=== PATIENT | male | born 1975 | race Caucasian/White ===

== ENCOUNTER 2018-07-12 00:35 | Outpatient (CLI) | payer MEDICARE, MEDICAID, SELFPAY ==
--- NOTE | 2018-07-12 10:35 | DI.US_ITS ---
SYMPTOMS/DIAGNOSIS: CONFUSION AND DISORIENTATION CAROTID ULTRASOUND: There is a minimal amount of plaque, which is calcified, seen in the common carotid bulbs and proximal internal carotid arteries. There is no significant visible stenosis. The velocity measurements are within the normal range. The vertebral arteries show antegrade flow. The internal carotid arteries are noted to be tortuous bilaterally. IMPRESSION: Minimal calcific plaque. No significant internal carotid artery stenosis.
== END 2018-07-12 00:55 ==
PROVIDERS: PCP Family Medicine; Visit Provider Family Medicine
DX: G45.9 Transient cerebral ischemic attack, unspecified (principal); R41.0 Disorientation, unspecified; I77.89 Other specified disorders of arteries and arterioles
CPT/HCPCS: 93880

== ENCOUNTER 2018-08-27 01:06 | Outpatient (CLI) | payer MEDICARE, MEDICAID, SELFPAY ==
--- NOTE | 2018-08-27 14:57 | DI.MRI_ITS ---
SYMPTOMS/DIAGNOSIS: RADICULOPATHY, M54.10 LUMBOSACRAL SPINE MRI: MRI examination of the lumbosacral spine was performed according to the usual protocol. No significant bony signal abnormality is seen. The conus medullaris appears intact. No bony central canal spinal stenosis or neural foraminal stenosis seen. Minimal hypertrophic changes noted involving the facet joints. At L 4 - 5 there is a mild central disc herniation, no definite impingement on the neural structures. No other disc herniation identified in the lumbar region. CONCLUSION: Mild central disc herniation at L 4 - 5 without evidence of neural impingement. No other significant findings.
== END 2018-08-27 01:26 ==
PROVIDERS: PCP Family Medicine; Visit Provider Family Medicine
DX: M54.16 Radiculopathy, lumbar region (principal); M51.16 Intervertebral disc disorders with radiculopathy, lumbar region
CPT/HCPCS: 72148

== ENCOUNTER 2018-10-05 00:37 | Outpatient (CLI) | payer MEDICARE, MEDICAID, SELFPAY ==
--- NOTE | 2018-10-05 08:59 | DI.RAD_ITS ---
SYMPTOM/DIAGNOSIS: RIGHT HIP PAIN, M25.551 RIGHT HIP AND AP PELVIS: No priors. There is mild acetabular spurring of the right hip. The joint space is otherwise well maintained. The bones are intact and normally mineralized. The sacroiliac joint, symphysis pubis and left hip are all well maintained. The soft tissues are unremarkable. IMPRESSION: Minimal degenerative changes of the right hip.
== END 2018-10-05 00:57 ==
PROVIDERS: PCP Family Medicine; Visit Provider Family Medicine
DX: M25.551 Pain in right hip (principal); M16.11 Unilateral primary osteoarthritis, right hip
CPT/HCPCS: 73502

== ENCOUNTER 2018-10-27 12:45 | Outpatient (CLI) | payer MEDICARE, MEDICAID, SELFPAY ==
--- NOTE | 2018-10-27 06:00 | DI.RAD_ITS ---
SYMPTOMS/DIAGNOSIS: GREATER TROCHANTERIC BURSITIS OF RIGHT HIP C-ARM FLUOROSCOPY, RIGHT HIP: Fluoroscopy Time: 7.7 seconds/1.09 mGy C-arm fluoroscopy was utilized by Dr. Solano during reported trochanteric injection. Hard copies show injection in the region of the trochanteric bursa.
[2018-10-27 12:53] VITALS: BP 108/72; PULSE 59; RESP 20; TEMP 37; O2SAT 97
[2018-10-27 13:21] VITALS: BP 113/64; PULSE 56; RESP 14; O2SAT 100
[2018-10-27 13:27] VITALS: BP 132/81; PULSE 58; RESP 16; O2SAT 99
[2018-10-27 13:34] VITALS: BP 120/86; PULSE 58; RESP 16; O2SAT 99
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
[2018-10-27] MEDS: Bupivacaine 0.5% Pres-Free 30 ML VIAL IJ (14:02)
[2018-10-27] MEDS: methylPREDNISolone ACETATE 40 MG/ML VIAL IJ (14:02)
[2018-10-27] MEDS: Omnipaque 240 MG/ML 50 ML BTL IJ (14:04)
== END 2018-10-27 13:05 ==
PROVIDERS: PCP Family Medicine; Visit Provider Anesthesiology Pain Medicine
DX: M70.61 Trochanteric bursitis, right hip (principal); G89.29 Other chronic pain
CPT/HCPCS: 20610; 77002; J1030; Q9967

== ENCOUNTER 2019-02-02 03:43 | Outpatient (CLI) | payer MEDICARE, MEDICAID, SELFPAY ==
[2019-02-02 11:51] VITALS: BP 113/74; PULSE 62; RESP 16; TEMP 36.7; O2SAT 97
[2019-02-02 12:44] VITALS: BP 105/61; PULSE 56; RESP 11; O2SAT 100
--- NOTE | 2019-02-02 12:54 | DI.US_ITS ---
SYMPTOMS/DIAGNOSIS: LATERAL HIP PAIN AND NUMBNESS PAIN CLINIC INJECTION UNDER ULTRASOUND: An ultrasound examination was performed by Dr. Solano in conjunction with an injection of the right femoral cutaneous nerve. Please see the procedure report for further information.
[2019-02-02] MEDS: methylPREDNISolone ACETATE 40 MG/ML VIAL IM (12:55)
[2019-02-02] MEDS: Bupivacaine 0.5% Pres-Free 10 ML VIAL 5 ML IJ (12:56)
--- NOTE | 2019-02-02 12:57 | PDOC.PAIN_ITS ---
Pain Clinic Procedure Note Current Active Problems Problem Status Onset Meralgia paresthetica of right side Chronic ULTRASOUND GUIDED {RIGHT LATERAL FEMORAL CUTANEOUS INJECTION Pre-Procedural Evaluation: PHANI QUINTERO has been referred to the [facility] for an Ultrasound Guided {right RIGHT LATERAL FEMORAL CUTANEOUS injection for a chief complaint of MERALGIA PARESTHETICA Pre-procedure Pain ScoreL {510 Patient was interviewed and the medical record reviewed. There were no medical, pharmacologic, radiographic, or other structural contraindications to preforming an ultrasound guided injection. Risks and expected side effects as well as potential benefits of the procedure were reviewed. The patient consent form was signed and witnessed. Standard time-out procedure was performed. The use of direct ultrasound visualization of the needle (rather than a non- guided injection) was required to increase patient safety by excluding inadvertent intramuscular, intratendinous, or intraneural needle placement and minimizing bleeding by avoiding osteochondral or vascular injury from the needle. Additionally, the increased accuracy of placement may increase clinical effectiveness and will allow higher diagnostic specificity when evaluating effectiveness of this injection. Procedure Description: The patient was placed in the {supine} position and automated blood pressure cuff and pulse oximeter applied for monitoring during the procedure and recorded in the medical record. Pre-injection ultrasound scanning of the area of interest was performed using {HF US TRANSDUCER} transducer, identifying relevant anatomy, landmarks, and neurovascular structures allowing for optimal needle path. The site was then prepared in the usual sterile fashion, using thorough Chlorhexadine preparation of the skin and sterile draping. The same ultrasound transducer was then passed into the sterile field using sterile probe cover and sterile ultrasound gel. The injection target was again visualized. Skin and subcutaneous tissues were anesthetized with {1} mL of 1% Lidocaine. A {2 22 guage needle} inch needle was placed under live ultrasound guidance, using an {in-plane} approach, to the target area( LFCN- AT THE LATERAL EDGE OF THE SATORIOUS MUSCLE. After visualization of the needle tip at the target area, a mixture of 5mL {0.5% BUPIVACAINE} and 1mL {DEPOMEDROL 40MG}, totaling 6 mL of injectate was delivered after negative aspiration for blood. Ultrasound images were captured and stored for documentation purposes. Post-procedure Pain Score: {2/10 Vital signs were stable throughout the procedure and were as recorded in the docflowsheet by the nursing staff. Follow up plans and appointments were discussed with the patient.Post procedure instruction was given as documented in nursing documentation and having met discharge criteria, they were discharged from the [facility]. COMMENTS: F/U PRN. CONSIDER NERVE TESTING AND FURTHER W/U IF NOT BETTER.
== END 2019-02-02 04:03 ==
PROVIDERS: PCP Family Medicine; Visit Provider Anesthesiology Pain Medicine
DX: G57.11 Meralgia paresthetica, right lower limb (principal)
CPT/HCPCS: 64450; 76942; J1030

== ENCOUNTER → 2019-04-13 08:14 | Outpatient (BNVA) | payer MEDICARE, MEDICAID, SELFPAY | PROVIDERS: PCP Family Medicine; Referring Provider Family Medicine; Visit Provider Psychiatry & Neurology Neurology | DX: G57.11 Meralgia paresthetica, right lower limb (principal); G62.9 Polyneuropathy, unspecified | CPT/HCPCS: 95885; 95908; 99205; 99215 ==

== ENCOUNTER 2019-09-06 01:51 | Outpatient (CLI) | payer MEDICARE, OTHER, SELFPAY ==
[2019-09-06 08:13] LABS: HCT 41.9 % (40.0-50.0); HGB 14.3 g/dL (13.5-17.5); Mean Corp. HGB Concentration 34.1 g/dL (32.0-36.0); Mean Corpuscular Hemoglobin 31.2 pg (27.0-33.0); Mean Corpuscular Volume 91.3 fL (80-95); Mean Platelet Volume 8.9 fL (8.0-11.0); Platelet Count 272 x1000/uL (130-400); RBC 4.59 m/cumm (4.50-6.00); RBC Distribution Width 12.8 % (11.8-14.1); White Blood Cell Count 4.26 k/cumm (4.4-10.8)
[2019-09-06 08:50] LABS: Iron 121 ug/dL (50-175); Total Iron Binding Capacity 207 ug/dL (250-450); Transferrin Sat 58 % (20-55)
[2019-09-06 09:23] LABS: ALT 78 U/L (16-63); AST 60 U/L (15-37); Albumin 3.8 g/dL (3.4-5.0); Alkaline Phosphatase 110 U/L (46-116); Anion Gap 8.6 mmol/L (3-11); BUN 19 mg/dL (7-18); Bilirubin, Total 0.4 mg/dL (0.2-1.0); CO2 27.4 mmol/L (21.0-32.0); CREATININE 0.75 mg/dL (0.70-1.30); Calcium 8.7 mg/dL (8.5-10.1); Calculated LDL 132 mg/dL; Chloride 106 mmol/L (98-107); Cholesterol 202 mg/dL (50-200); Ferritin 199 ng/mL (8-388); Glucose 87 mg/dL (70-100); HDL Cholesterol 56 mg/dL (40-60); Potassium 4.5 mmol/L (3.5-5.1); Sodium 142 mmol/L (136-145); Total Protein 6.8 g/dL (6.4-8.2); Triglyceride 72 mg/dL (30-150)
== END 2019-09-06 02:11 ==
PROVIDERS: PCP Family Medicine; Visit Provider Family Medicine
DX: D64.9 Anemia, unspecified (principal); E66.01 Morbid (severe) obesity due to excess calories; M54.10 Radiculopathy, site unspecified; Z98.84 Bariatric surgery status
CPT/HCPCS: 36415; 80053; 80061; 85027; 82728; 83540; 83550

== ENCOUNTER 2020-06-01 13:30 | Outpatient (CLI) | payer MEDICARE, OTHER, SELFPAY ==
[2020-06-04 18:14] LABS: SARS-CoV-2 RNA Undetected (Undetected); SARS-CoV-2 Specimen Source Nasopharynx
== END 2020-06-01 13:50 ==
PROVIDERS: PCP Family Medicine; Visit Provider Family Medicine
DX: R50.9 Fever, unspecified (principal); Z11.59 Encounter for screening for other viral diseases
CPT/HCPCS: U0003

== ENCOUNTER 2020-11-01 03:15 | Outpatient (CLI) | payer MEDICARE, OTHER, SELFPAY ==
[2020-11-01 13:02] LABS: PHENYTOIN (DILANTIN) 15.5 ug/mL (10.0-20.0)
[2020-11-01 13:06] LABS: ALT 52 U/L (16-63); AST 28 U/L (15-37); Albumin 3.9 g/dL (3.4-5.0); Alkaline Phosphatase 93 U/L (46-116); Anion Gap 7.9 mmol/L (3-11); BUN 15 mg/dL (7-18); Bilirubin, Total 0.3 mg/dL (0.2-1.0); CO2 27.1 mmol/L (21.0-32.0); CREATININE 0.85 mg/dL (0.70-1.30); Calcium 8.7 mg/dL (8.5-10.1); Chloride 108 mmol/L (98-107); Glucose 84 mg/dL (74-106); Potassium 4.5 mmol/L (3.5-5.1); Sodium 143 mmol/L (136-145); Total Protein 6.9 g/dL (6.4-8.2)
== END 2020-11-01 03:35 ==
PROVIDERS: Family Medicine; PCP Nurse Practitioner; Visit Provider Nurse Practitioner
DX: G40.909 Epilepsy, unspecified, not intractable, without status epilepticus (principal); Z98.84 Bariatric surgery status; Z51.81 Encounter for therapeutic drug level monitoring; Z79.899 Other long term (current) drug therapy; F44.5 Conversion disorder with seizures or convulsions; G62.9 Polyneuropathy, unspecified
CPT/HCPCS: 36415; 80053; 87329; 87505; 80185; 87324

== ENCOUNTER → 2020-11-21 09:47 | Outpatient (BNVA) | payer MEDICARE, OTHER, SELFPAY | PROVIDERS: PCP Nurse Practitioner; Referring Provider Nurse Practitioner; Visit Provider Psychiatry & Neurology Neurology | DX: F44.5 Conversion disorder with seizures or convulsions (principal); G57.11 Meralgia paresthetica, right lower limb; E53.8 Deficiency of other specified B group vitamins; G43.009 Migraine without aura, not intractable, without status migrainosus; G62.9 Polyneuropathy, unspecified | CPT/HCPCS: 99215; G2212 ==

== ENCOUNTER 2020-12-25 02:25 | Outpatient (CLI) | payer MEDICARE, OTHER, SELFPAY ==
[2020-12-25 09:32] LABS: PHENYTOIN (DILANTIN) 8.1 ug/mL (10.0-20.0)
== END 2020-12-25 02:26 | disposition home or self-care (01) ==
LOC: LBO 02:25
PROVIDERS: PCP Nurse Practitioner Family; Visit Provider Nurse Practitioner Family
DX: F44.5 Conversion disorder with seizures or convulsions (principal); Z51.81 Encounter for therapeutic drug level monitoring
CPT/HCPCS: 36415; 80185

== ENCOUNTER 2022-01-13 00:59 | Outpatient (CLI) | payer MEDICARE, OTHER, SELFPAY ==
[2022-01-13] MEDS: Inhaler, Assist Device 1 EACH MC (09:04)
[2022-01-13] MEDS: Albuterol HFA 18 GM 200 PUFF INH IH (09:04)
== END 2022-01-13 01:00 | disposition home or self-care (01) ==
PROVIDERS: PCP Nurse Practitioner Family; Visit Provider Nurse Practitioner Family
DX: R06.02 Shortness of breath (principal); R06.89 Other abnormalities of breathing; R06.00 Dyspnea, unspecified
CPT/HCPCS: 94060; 94726; 94729

== ENCOUNTER 2022-09-09 18:40 | Emergency (ER) | payer MEDICARE, OTHER, SELFPAY ==
[2022-09-09 19:14] VITALS: BP 121/74; PULSE 73; RESP 15; TEMP 37.2; O2SAT 96
== END 2022-09-09 22:34 ==
PROVIDERS: PCP Nurse Practitioner Family
DX: Z53.21 Procedure and treatment not carried out due to patient leaving prior to being seen by health care provider (principal)
CPT/HCPCS: 80053; 83690; 83735; 85025

== ENCOUNTER → 2022-10-28 08:47 | Outpatient (BNVA) | payer MEDICARE, OTHER, SELFPAY | PROVIDERS: PCP Nurse Practitioner Family; Referring Provider Nurse Practitioner Family; Visit Provider Nurse Practitioner Gerontology | DX: N20.0 Calculus of kidney (principal) | CPT/HCPCS: 99214 ==

== ENCOUNTER 2022-10-28 10:38 | Outpatient (REF) | payer MEDICARE, OTHER, SELFPAY ==
[2022-10-31 18:37] LABS: Source: Passed Stone
== END 2022-10-28 10:39 | disposition home or self-care (01) ==
LOC: LBN 10:38
PROVIDERS: PCP Nurse Practitioner Family; Visit Provider Nurse Practitioner Gerontology
DX: N20.0 Calculus of kidney (principal)
CPT/HCPCS: 82365

== ENCOUNTER 2023-02-23 01:34 | Outpatient (CLI) | payer MEDICARE, OTHER, SELFPAY ==
[2023-02-23 11:51] LABS: Calculated LDL 138 mg/dL (<100); Cholesterol 233 mg/dL (<200); HDL Cholesterol 46 mg/dL (40-60); Triglyceride 246 mg/dL (<150)
== END 2023-02-23 01:35 | disposition home or self-care (01) ==
LOC: LBO 01:34
PROVIDERS: PCP Nurse Practitioner Family; Visit Provider Nurse Practitioner Family
DX: E78.5 Hyperlipidemia, unspecified (principal)
CPT/HCPCS: 36415; 80061

== ENCOUNTER 2023-03-17 01:25 | Outpatient (CLI) | payer MEDICARE, OTHER, SELFPAY ==
--- NOTE | 2023-03-17 07:00 | DI.RAD_ITS ---
Exam(s) XR SHOULDER RT COMPLETE 2+V EXAM: XR SHOULDER RT COMPLETE 2+V CLINICAL HISTORY: right shoulder pain,M25.511. TECHNIQUE: 2D digital imaging was performed of the right shoulder. Five images were obtained. AP, Grashey, Y-view and axillary views were obtained. COMPARISON: CR CHEST 2 VIEWS PA,LAT from 11/25/2009 FINDINGS: BONES: No acute fracture is present. No bony destructive lesion is seen. JOINTS: No dislocation present. Degenerative changes are seen at the acromioclavicular joint. The gl enohumeral joint is well maintained. SOFT TISSUE: Normal. IMPRESSION: Degenerative changes of the acromioclavicular joint. DATA REPOSITORY: RADIATION DOSE DELIVERED:
== END 2023-03-17 01:45 ==
LOC: DI 01:26
PROVIDERS: PCP Nurse Practitioner Family; Visit Provider Nurse Practitioner Family
DX: M25.511 Pain in right shoulder (principal)
CPT/HCPCS: 73030

== ENCOUNTER → 2023-04-14 08:25 | Outpatient (BNVA) | payer MEDICARE, OTHER, SELFPAY | PROVIDERS: PCP Nurse Practitioner Family; Referring Provider Nurse Practitioner Family; Visit Provider Student in an Organized Health Care Education/Training Program | DX: M75.101 Unspecified rotator cuff tear or rupture of right shoulder, not specified as traumatic (principal); M19.011 Primary osteoarthritis, right shoulder; Z87.820 Personal history of traumatic brain injury; G40.909 Epilepsy, unspecified, not intractable, without status epilepticus | CPT/HCPCS: 99203; 99213 ==

== ENCOUNTER 2023-04-30 02:25 | Outpatient (CLI) | payer MEDICARE, OTHER, SELFPAY ==
--- NOTE | 2023-04-30 07:30 | DI.MRI_ITS ---
Exam(s) MR UPPER JOINT RT WO EXAM: MR UPPER JOINT RT WO CLINICAL HISTORY: R SHOULDER PAIN,RT ROTATOR CUFF TEAR,ARTHRITIS RT JOINT,M25.511,M19.011,. TECHNIQUE: Multiplanar multisequence MRI was performed. COMPARISON: Plain films March 24 FINDINGS: BONES: There is no fracture or contusion pattern. There are a few degenerative cysts in the humeral head. JOINTS:The acromioclavicular joint shows no significant inferior spurring.. The glenohumeral joint s hows a small amount of fluid. TENDONS: Supraspinatus: Marked thickening distally with high signal additional full-thickness tear noted anter iorly. Infraspinatus: Thickening and edema. No focal tear visible. Subscapularis: Unremarkable. Teres [place]: Unremarkable. Biceps and [place]: Fluid around biceps tendon. Tendon appears intact. MUSCLES: Unremarkable. No atrophy GLENOID LABRUM: Degenerative changes. SOFT TISSUES: Unremarkable. OTHER: Subacromial and subdeltoid bursae shows a small amount of fluid. . Small amount of fluid in subcoracoid bursa. IMPRESSION: Supraspinatus tendinosis with full-thickness tear seen anteriorly. Infraspinatus tendinosis. DATA REPOSITORY:
== END 2023-04-30 02:45 ==
LOC: DI 02:25
PROVIDERS: PCP Nurse Practitioner Family; Visit Provider Student in an Organized Health Care Education/Training Program
DX: M67.813 Other specified disorders of tendon, right shoulder (principal); M75.121 Complete rotator cuff tear or rupture of right shoulder, not specified as traumatic
CPT/HCPCS: 73221

== ENCOUNTER → 2023-05-06 09:53 | Outpatient (BNVA) | payer MEDICARE, OTHER, SELFPAY | PROVIDERS: PCP Nurse Practitioner Family; Referring Provider Nurse Practitioner Family; Visit Provider Student in an Organized Health Care Education/Training Program | DX: M19.011 Primary osteoarthritis, right shoulder (principal); M75.101 Unspecified rotator cuff tear or rupture of right shoulder, not specified as traumatic; M75.21 Bicipital tendinitis, right shoulder | CPT/HCPCS: 99214 ==

== ENCOUNTER 2023-05-28 06:05 | Day surgery (SDC) | payer MEDICARE, OTHER, SELFPAY ==
[2023-05-28] VITALS (12 sets, daily range): BP systolic 94–120; BP diastolic 56–89; PULSE 52–75; RESP 11–18; TEMP 36.1–36.6; O2SAT 94–100; BMI 33.0
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
--- NOTE | 2023-05-28 07:02 | W.PM.DSUDISC ---
Date of service: 05/28/23 Time of Service: 11:45 Discharge Plan Disposition Patient Disposition: Home Condition: Stable Discharge Details Attending Provider: Christiano Rangel Primary Care Provider: Serafin Gonzalez Home Meds and New Rx's Prescriptions: New naproxen 250 mg tablet 250 - 500 mg PO BID PRN (Reason: Moderate pain) Qty: 40 0RF aspirin 81 mg tablet,delayed release (DR/EC) 81 mg PO DAILY 7 Days Qty: 7 0RF oxycodone 5 mg tablet 5 - 10 mg PO Q4H PRN (Reason: Moderate to severe pain) Qty: 18 0RF Continued albuterol sulfate 90 mcg/actuation HFA aerosol inhaler 2 puff inhalation Q6H PRN (Reason: shortness of breath or wheezing) Qty: 8.5 3RF calcium citrate 200 mg (950 mg) tablet 600 mg PO BID cyanocobalamin (vitamin B-12) 1,000 mcg capsule 1,000 mcg PO DAILY Qty: 90 4RF cholecalciferol (vitamin D3) 100 mcg (4,000 unit) capsule 4,000 unit PO DAILY Qty: 90 4RF acetaminophen 500 MG tablet 1,000 mg PO PRN Complete Multivitamin Tablet 1 tab PO DAILY Qty: 90 4RF sertraline 100 mg tablet 100 mg PO DAILY Qty: 90 3RF omeprazole 40 mg capsule,delayed release(DR/EC) 40 mg PO DAILY Qty: 90 4RF Discontinued diclofenac sodium 1 % gel 4 gm TP QID Qty: 100 4RF Rx Instructions: apply to right leg Discharge Instructions Additional Instructions: Surgery: Right shoulder arthroscopy with rotator cuff repair (subscapularis), biceps tenodesis, extensive debridement, and subacromial decompression; significant glenohumeral chondromalacia, moderate partial supraspinatus and infraspinatus rotator cuff tearing. Activity: For 6 weeks, you should keep your arm at your side in a neutral position at all times except for physical therapy. Do not try to lift or raise your arm using your own muscles. You should use the sling whenever you are out of the house. You may have to adjust the abduction pillow or remove it for comfort. At home it is best to remove the sling and rest the arm on a pillow at your side or support the operative side with your other hand. You may allow the arm to dangle at your side. A physical therapy prescription will be sent electronically to begin in about 3 weeks. STANDARD protocol. Prescriptions: Aspirin 81 mg take 1 daily to prevent a blood clot for 7 days Naproxen 250 mg take 1-2 every 12 hours with a meal as needed for moderate pain Oxycodone 5 mg take 1-2 every 4-6 hours as needed for severe pain You may use [id number]-djp-sdjdset Tylenol (acetaminophen) as needed for mild pain. These pain medications may be taken all at once or in different combinations as needed. Also, recommend Colace (docusate) as a stool softener as surgery and pain medicine cause constipation. You may try koxk-yha-dxpokwn diphenhydramine (Benadryl) 25-50 mg nightly as a sleep aid Dressings: Remove shoulder bandage after 3 days. Leave the sticky Steri-Strips in place until they fall off or remove them after you shower. Cover the incisions with Band-Aids or leave them open to air. You may shower after 5 days. Follow-up: 10-[address] Rangel You may take off the leg compression stockings this evening at home. You may also leave them on a few days longer if you have a history of leg swelling or edema. Let us know right away if you develop any redness, drainage, fevers, chest pain, or trouble breathing. Do not drink alcohol or drive for at least 24 hours after anesthesia. Please call the office during business hours with any questions or concerns. Discharge Orders Discharge Orders: Discharge Order (Routine); Ordered 05/28/23 Ordered By: Christiano Rangel DS: Diagnosis Discharge Diagnosis (1) Rotator cuff tear, right: Status: Acute
[2023-05-28] MEDS: Lactated Ringers 1,000 ML 30 ML IV (07:05)
--- NOTE | 2023-05-28 07:07 | W.ANESPRE ---
General Info Date of Service Date Performed: 05/28/23 Height: 6 ft 4 in Weight: 123 kg Body Mass Index (BMI): 33.0 Surgical Procedure: Operation Date: 05/28/23 07:40 Proposed Procedure Side Surgeon p Shoulder Rotator Cuff Arthroscopic w/Extensive Debridement, Biceps Tenodesis, Subacromial Decompression Right Christiano Rangel MD Meds Allergies and Home Medications Allergies Allergy/AdvReac Type Severity Reaction Status Date / Time pseudoephedrine Allergy Unknown BREATHING Verified 05/28/23 06:26 DIFFICULTY gabapentin AdvReac suicidal Verified 05/28/23 06:26 ideation, sleep disturbance Home Medication Medication Instructions Recorded acetaminophen 500 mg tablet 1,000 mg PO PRN 06/08/18 calcium citrate 200 mg (950 mg) 600 mg PO BID 09/15/18 tablet multivitamin,[id number] 1 tab PO DAILY #90 tabs 08/15/19 (Complete Multivitamin tablet) diclofenac sodium 1 % topical gel 4 gm topical QID #100 grams 08/30/19 cholecalciferol (vitamin D3) 100 4,000 unit PO DAILY #90 caps 09/06/20 mcg (4,000 unit) capsule cyanocobalamin (vitamin B-12) 1,000 mcg PO DAILY #90 caps 09/06/20 1,000 mcg capsule albuterol sulfate 90 mcg/actuation 2 puff inhalation Q6H PRN 01/27/22 aerosol inhaler shortness of breath or wheezing #8.5 grams omeprazole 40 mg capsule,delayed 40 mg PO DAILY #90 caps 02/25/23 release sertraline 100 mg tablet 100 mg PO DAILY #90 tabs 02/25/23 Current Visit Medications: Current Medications Generic Name Dose Route Start Last Admin Trade Name Freq PRN Reason Stop Dose Admin Ringer's Solution 1,000 mls @ 30 mls/hr 05/28/23 06:00 05/28/23 07:05 IV 06/26/23 23:59 30 mls/hr INFUSION QUENTIN Administration Cefazolin Sodium/Dextrose 2 gm in 50 mls @ 100 mls/hr 05/28/23 06:00 Ancef Duplex IVPB 05/28/23 16:00 PREOP QUENTIN IV Miscellaneous Supplies 1 each 05/28/23 06:00 Iv Access IV 06/26/23 23:59 DIRECTED QUENTIN Sodium Chloride 0 ml 05/28/23 06:00 Normal Saline Flush 10 Ml Syr IV 06/26/23 23:59 PRN PRN Sodium Chloride 0 ml 05/28/23 06:00 Normal Saline 10 Ml Vial IJ 06/26/23 23:59 DIRECTED PRN Sterile Water 0 ml 05/28/23 06:00 Water,Injection,Sterile 10 Ml Vial IJ 06/26/23 23:59 DIRECTED PRN PFSH Active Problems Active Problems: Problem Status Onset Code Chronic fatigue 05/14/15 R53.82 Gastroesophageal reflux disease 09/06/13 K21.9 PTSD (post-traumatic stress disorder) 04/07/17 F43.10 Post concussion syndrome 02/25/16 F07.81 Obstructive sleep apnea syndrome 09/06/13 G47.33 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, subsequent encounter 06/17/06 S06.2X2D Vitamin D deficiency 11/29/14 E55.9 Right lumbar radiculopathy M54.16 Meralgia paresthetica of right side G57.11 Peripheral neuropathy G62.9 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 Vitamin B12 deficiency E53.8 Migraine headache without aura G43.009 Anxiety F41.9 Hyperlipidemia E78.5 Right knee pain M25.561 Right foot pain M79.671 Depression F32.A Shortness of breath R06.02 Kidney stone N20.0 Rotator cuff tear, right M75.101 Arthritis of right glenohumeral joint M19.011 Tendonitis of long head of biceps brachii of right shoulder M75.21 Medical History Medical History PTSD (post-traumatic stress disorder) Loud noises are potential triggers Surgical History Surgical History Cholecystectomy (~2008) EGD - MAC (01/09/10) H/O gastric bypass Repair, Esotropia (01/09/74) Rotator Cuff Repair (~1993) Status post bariatric surgery UPPP (Uvulopalatopharyngoplasty) (01/09/09) Tobacco Smoking/Tobacco Use Status: Never Passive smoking exposure: Yes Second hand exposure: Yes Alcohol Alcohol Intake: never Substance Use Substance use: Never Substance use type: does not use Vital Signs and Lab Results Vital Signs Most Recent Vital Signs in EMR: Most Recent Vital Signs Temp Pulse Resp BP Pulse Ox 36.1 C L 52 L 16 120/88 97 05/28/23 06:19 05/28/23 06:19 05/28/23 06:19 05/28/23 06:19 05/28/23 06:19 Lab Results Blood Type / Crossmatch: No Data to Display Complete Blood Count: No Data to Display Complete Metabolic Panel: No Data to Display Liver Function Panel: No Data to Display Coagulation Panel: No Data to Display Cardiac Panel: No Data to Display Arterial Blood Gas: No Data to Display Venous Blood Gas: No Data to Display Pancreas Panel: No Data to Display Thyroid Panel: No Data to Display Infectious Disease: No Data to Display Blood Cultures: No Data to Display Toxicology Panel: No Data to Display Anesthesia Assessment and Plan Anesthesia History Personal History: No History of Anesthesia Complications Family History: No Family History of Anesthesia Complications Exercise Tolerance Exercise Tolerance: Metabolic Equivalents>4 Pertinent Negatives Pertinent Negatives: No Symptoms of GERD Cardiac & Pulmonary Exam Cardiac Exam: Normal S1/S2 Heart Sounds Pulmonary Exam: Clear Bilateral Breath Sounds Implantable Cardiac Device Does patient have a Pacemaker or an ICD?: No Airway Exam Known Difficult Airway: No Mallampati Class: 2 Mouth Opening: Normal (> 3cm) Thyromental Distance: Greater than 3 cm Facial Hair: Full Marlow Neck Range of Motion: Full ROM Neck Circumference: Normal Teeth Condition: Normal Dentition ASA Classification ASA Score: ASA 2 Emergency Case?: No NPO Status NPO Status: NPO Clears >2 hours, Solids >8 hours Anesthesia Plan Resuscitation Status: Full Code Anesthesia Technique: General Anesthesia Airway Planned: Endotracheal Tube Monitors Used: Standard Monitors
--- NOTE | 2023-05-28 07:11 | ROE_ITS ---
Date of service: 05/28/23 Time of Service: 07:30 Operative Note Operative Note DATE OF PROCEDURE: 05/28/23 PRE-OP DIAGNOSIS: Right: 1. Rotator cuff tear 2. LHB tendinopathy 3. Glenohumeral chondromalacia 4. Bursitis POST-OP DIAGNOSIS: same PROCEDURE: Right: 1. Rotator cuff repair, CPT# 65866. This involved repair of the subscapularis using anchors and sutures to reattach the rotator cuff back to the footprint of the lesser tuberosity. 2. Arthroscopic biceps tenodesis, CPT# 88035. This involved arthroscopically suturing and reattaching the long head of the biceps tendon to the proximal humerus at the superior margin of the bicipital groove with a screw at the correct tension. 3. Extensive debridement, CPT# 32756. This involved using arthroscopic hand instruments, power instruments, and radiofrequency instruments to release the long head of the biceps tendon and debride areas of anterior and posterior labral tearing, release the [facility] L anterior capsule, debride rotator interval synovitis, remove multiple chondral loose bodies including a large ovoid osteochondral loose body through an accessory posterior low portal to accommodate the about 1 x 1 cm size and location, and lightly debride posterior central humeral head chondromalacia ensuring loose unstable cartilage flaps were removed working within the glenohumeral joint anteriorly, superiorly and posteriorly. 4. Subacromial decompression, CPT# 32881. This involved using arthroscopic power instruments and a radiofrequency wand to complete a bursectomy. The hospital administrative assistant was medically required in order to help assist in techniques above, which require positioning the arm, holding the arthroscope, and manipulating multiple instruments and sutures at the same time. This cannot be done without the help of an experienced hospital administrative assistant. SURGEON: Christiano Rangel WATCH AND CLOCK MAKER AND REPAIRER: Faraz Riley ANESTHESIA TYPE: General LMA/ETT and Primary Nerve Block Refer to Anesthesia Record ESTIMATED BLOOD LOSS: 10 PATHOLOGY: none sent COMPLICATIONS: None Patient was transported to: PACU Patient's condition: stable Implants: Arthrex: 4.75mm SwiveLocks x 1 Indications: The patient was diagnosed with the above conditions and appropriately indicated for surgical intervention. Please see complete medical record for details. Findings: Exam under anesthesia: Moderately full range of motion, no instability, glenohumeral moderate crepitation Glenohumeral joint: Significant glenohumeral chondromalacia including full?thickness moderately large posterior central humeral head lesion and moderate thickness anterior central glenoid lesion. Multiple chondral loose bodies smaller about 4 to 7 mm somewhat ovoid and a single larger round loose body about 10 x 10 mm in the axillary recess. Donor site probably the full- thickness cartilage loss posterior central humeral head. Impending loose cartilage flaps about this posterior humeral head lesion. Moderate rotator interval synovitis. Upper lateral margin subscapularis rotator cuff tearing off and exposing the adjacent lesser tuberosity. Degenerative type SLAP tear. Fairly significant posterior and moderate labral fraying. Only mild partial articular supraspinatus tearing without any significant infraspinatus involvement or uncovering of the greater tuberosity footprint. Subacromial space: Mild bursitis. No significant subacromial bone spurring. No appreciable structural bursal supraspinatus or infraspinatus rotator cuff tearing. Procedure Description: In the operating room, general anesthesia was induced. Bilateral shoulders were examined. The patient was positioned in the beachchair position. All bony prominences were well-padded. Preoperative antibiotics were administered. The shoulder was prepped and draped in the usual sterile fashion. The correct patient, procedure, and side of the procedure were all verified prior to incision. Starting through the posterior portal a standard complete diagnostic arthroscopy was performed of the glenohumeral joint including inspection of the long head of the biceps, anterior and superior labrum, subscapularis tendon, supraspinatus and infraspinatus tendons, and axillary recess. The glenoid and humeral head cartilage as well as the posterior labrum were inspected from an anterior viewing portal. Significant findings and interventions noted above. Of note, an lower accessory posterior portal was made under direct visualization localized with a spinal needle and established with a switching stick while viewing from anterior and using the standard viewing posterior portal with a switching stick as a guide. This accessory portal was needed to view an instrument in the axillary recess to remove the multiple loose bodies as well as the larger loose body through a separate portal. Carefully, the half pipe was directed into the joint superior and then rotated into inferior position to protect the axillary nerve during this portion of the case. The multiple smaller loose bodies were readily removed with the mechanical shaver using light suction. The large loose body could not be removed with this technique. A pituitary rongeur was brought in, secured the fragment, and rotated and portal size dilated to accommodate removal. It was removed entirely. There are no additional loose bodies. An all-arthroscopic suprapectoral biceps tenodesis was performed through an anterior portal using a Loop N Tack method with a SutureTape FiberLink cinched around and through the tendon. The biceps was tenotomized from the labrum and fixated with a suture anchor at the superior margin of the bicipital groove. The biceps tenodesis had been completed with a knotless SwiveLock anchor, the repair suture was then shuttled around the tear margin of the subscapularis. The repair stitch was then shuttled back through the anchor knotless anchor mechanism and securely tensioned appropriately completing the subscapularis repair. The repair demonstrated good integrity through an external rotation without any restriction on motion. The supraspinatus infraspinous was thoroughly examined. Anteriorly to centrally in the supraspinatus a spinal needle was directed from superior through the subacromial space to localize this bone of injury in the bursal space. Starting through the posterior portal, the arthroscope was directed into the subacromial space. A lateral 50 yard line lateral portal was created. A combination of power instruments and a radiofrequency ablator were used to debride bursitis anteriorly, posteriorly, and laterally as well as expose the undersurface of the acromion. The coracoacromial ligament was partially released. The bursectomy was completed viewing laterally and working from posteriorly and the rotator cuff was thoroughly inspected with findings noted above. Given the high level of concern based on the MRI for a supraspinatus or infraspinatus rotator cuff tear requiring repair, cannulas were inserted laterally and an anterior superior lateral portal was also made. While viewing from laterally the arm was rotated and through the superior anterolateral portal a probe was used to thoroughly inspected the bursal rotator cuff. Particular attention was paid to the area of concern anteriorly to centrally about the marked location of the spinal needle. Remarkably, there was no significant bursal structural tearing, thinning, or fraying to indicate the need for repair. Given the mild involvement on the articular side, decision was made to omit any takedown and repair of what is mostly a concealed interstitial degenerative?type delamination. The shoulder was drained of arthroscopic fluid. All portal sites were copiously irrigated. These incisions were closed using 3-0 Monocryl in a buried fashion and then covered with Mastisol, Steri-Strips, Xeroform, dry gauze, and ABDs. The dressings were covered and secured with Medipore tape. The operative extremity was placed into a sling for immobilization. The patient awoke from anesthesia without complication and was transferred to the recovery room in a stable condition.
[2023-05-28] MEDS: ceFAZolin 2 GM/50 ML BAG IVPB (07:44)
--- NOTE | 2023-05-28 08:20 | W.ANESNERVE ---
Nerve Block Single Injection Procedure Date and Time Date Performed: 05/28/23 Procedure Start: 07:20 Location Where Procedure Performed Procedure Location: Day Surgery Unit Reason Performed: Postoperative Analgesia Requesting Provider: Christiano Rangel Timeout Performed Timeout Performed: Yes Monitoring Used ECG, Blood Pressure, SpO2, ETCO2 and See EMR for corresponding vital signs Sterility Sterility: Hand Hygiene, Surgical Cap, Surgical Mask, Sterile Gloves, Eye Protection and Chlorhexidine Sedation Given During Procedure Sedation Given (Indicate Dose Given): Versed IV (Documeted in Plexus) Dose:: 3mg IVP Patient Mental Status Patient Mental Status: Sedate with meaningful communication Nerve Block 1st Nerve Block: Laterality: Right Block Type: Interscalene Ultrasound Image Saved?: Yes Needle / Catheter Used: 80mm SonoPlex II Local Anesthetic Bolus (Indicate Dose Given): Lidocaine used for local infiltration of skin (2%/1cc), Bupivacaine 0.5% Dose:: 10cc/0.5% (50mg) and Exparel Dose:: 10cc/1.3% (133mg) Additives (Indicate Dose Given): Epinephrine to make 1:200,000 (5mcg/ml) Dose:: Epi: 100mcg (5mcg/cc) and Decadron Dose:: 4mg Ultrasound: Sterile probe cover and gel used Nerve Stimulator: Not Used Paresthesia: None Procedure Tolerated: No Complications Procedure Outcome: Successful Performed By: Kyler Griffin
[2023-05-28] MEDS: EPINEPHrine 30 MG/30 ML VIAL (09:08)
--- NOTE | 2023-05-28 10:17 | W.ANESPOSTOP ---
Postoperative Evaluation Date, Time and Location Date Performed: 05/28/23 Time Performed: 10:17 Patient Location: PACU Vital Signs Most Recent Imported Vital Signs: Most Recent Vital Signs Temp Pulse Resp BP Pulse Ox 36.6 C 58 L 11 L 105/56 L 97 05/28/23 10:10 05/28/23 10:10 05/28/23 10:10 05/28/23 10:10 05/28/23 10:10 Pain Score Most Recent Pain Score: Most Recent Pain Score Pain Level 0 05/28/23 07:07 Assessment Mental Status: Awake (Alert & Oriented to Patient Baseline) Airway and Respiratory Function: Patent airway with normal (patient baseline) respiratory exam Cardiovascular Function: Hemodynamically Stable Hydration Status: Adequately Hydrated Nausea & Vomiting: No Nausea or Vomiting Pain: Pt. Denies Any Pain Peripheral Nerve Block: Regional nerve block not resolved at time of post operative discharge
[2023-05-28] MEDS: Albuterol HFA 8 GM 60 PUFF INH IH (12:15)
== END 2023-05-28 12:50 | disposition home or self-care (01) ==
PROVIDERS: PCP Nurse Practitioner Family; Visit Provider Student in an Organized Health Care Education/Training Program
PROC: (CPT 29827; principal; 2023-05-28 07:30)
DX: M75.101 Unspecified rotator cuff tear or rupture of right shoulder, not specified as traumatic (principal); M75.21 Bicipital tendinitis, right shoulder; M94.211 Chondromalacia, right shoulder; M75.51 Bursitis of right shoulder
CPT/HCPCS: 29827; 29828; 29823; 29826; 76942; J0171; J0690; J1100; J1885; J2001; J2250; J2405; J2704

== ENCOUNTER → 2023-06-10 09:34 | Outpatient (BNVA) | payer MEDICARE, OTHER, SELFPAY | PROVIDERS: PCP Nurse Practitioner Family; Referring Provider Nurse Practitioner Family; Visit Provider Student in an Organized Health Care Education/Training Program | DX: Z47.89 Encounter for other orthopedic aftercare (principal); M19.011 Primary osteoarthritis, right shoulder; M75.101 Unspecified rotator cuff tear or rupture of right shoulder, not specified as traumatic; M75.21 Bicipital tendinitis, right shoulder ==

== ENCOUNTER → 2023-07-22 08:54 | Outpatient (BNVA) | payer MEDICARE, OTHER, SELFPAY | PROVIDERS: PCP Nurse Practitioner Family; Referring Provider Nurse Practitioner Family | DX: Z47.89 Encounter for other orthopedic aftercare (principal); R20.0 Anesthesia of skin; M75.21 Bicipital tendinitis, right shoulder ==

== ENCOUNTER 2023-09-09 09:31 | Outpatient (CLI) | payer MEDICARE, OTHER, SELFPAY ==
--- NOTE | 2023-09-09 09:15 | DI.RAD_ITS ---
Exam(s) XR KNEE RT 3V AP,LAT,TIMOTHY EXAM: XR KNEE RT 3V AP,LAT,TIMOTHY CLINICAL HISTORY: right knee pain. TECHNIQUE: 2D digital imaging was performed of the right knee. Three views obtained. Merchant, AP an d lateral views were obtained. COMPARISON: No priors for comparison. FINDINGS: BONES: No acute fracture is present. No bony destructive lesion is seen. JOINTS: The knee is normally aligned. No joint effusion is seen. There are osteophytes seen at the po sterior patella. The femoral tibial joints are otherwise well maintained. SOFT TISSUE: Normal. IMPRESSION: Mild spurring of the posterior patella. DATA REPOSITORY: RADIATION DOSE DELIVERED:
== END 2023-09-09 09:32 | disposition home or self-care (01) ==
LOC: DIORS 09:32
PROVIDERS: PCP Nurse Practitioner Family; Referring Provider Nurse Practitioner Family; Visit Provider Student in an Organized Health Care Education/Training Program
DX: M23.91 Unspecified internal derangement of right knee; M19.011 Primary osteoarthritis, right shoulder; M75.21 Bicipital tendinitis, right shoulder
CPT/HCPCS: 73562; 99214

== ENCOUNTER → 2023-09-30 02:39 | Outpatient (CLI) | payer MEDICARE, OTHER, SELFPAY ==
--- NOTE | 2023-09-30 07:00 | DI.MRI_ITS ---
Exam(s) MR LOWER JOINT RT WO EXAM: MR LOWER JOINT RT WO CLINICAL HISTORY: R KNEE PAIN,INTERNAL DERANGEMENT,M23.91. TECHNIQUE: Multiplanar multisequence MRI was performed. COMPARISON: CR XR KNEE RT 3V AP,LAT,TIMOTHY from 09/09/2023 FINDINGS: BONES: There is no fracture or contusion pattern. JOINTS: There is thinning of the cartilage in the patellofemoral joint with subchondral edema present . There is normal articular cartilage seen in the femoral tibial joint. No effusion is present. TENDONS: Extensor mechanism: Unremarkable. Medial retinaculum: Unremarkable. Lateral retinaculum: Unremarkable. Popliteus: Unremarkable. MUSCLES: Unremarkable. MENISCI: There is hyperintense signal seen in the posterior horn of the medial meniscus which appears to contact the inferior articular surface suggestive of a tear. The lateral meniscus is unremarkabl e. SOFT TISSUES: There is fluid seen in the prepatellar soft tissues suggesting bursitis. LIGAMENTS: Anterior Cruciate: Unremarkable. Posterior Cruciate: Unremarkable. Medial Collateral:Unremarkable. Lateral Collateral: Unremarkable. OTHER: IMPRESSION: 1. There is a tear of the posterior horn of the medial meniscus. 2. No evidence of a ligament tear. 3. Degenerative changes of the patellofemoral joint. 4. Fluid seen anterior to the patella suggesting prepatellar bursitis. DATA REPOSITORY:
== END ==
PROVIDERS: PCP Nurse Practitioner Family; Visit Provider Student in an Organized Health Care Education/Training Program
DX: M23.221 Derangement of posterior horn of medial meniscus due to old tear or injury, right knee (principal)
CPT/HCPCS: 73721

== ENCOUNTER → 2023-10-07 08:55 | Outpatient (BNVA) | payer MEDICARE, OTHER, SELFPAY | PROVIDERS: PCP Nurse Practitioner Family; Referring Provider Nurse Practitioner Family; Visit Provider Student in an Organized Health Care Education/Training Program | DX: M22.41 Chondromalacia patellae, right knee (principal); S83.241D Other tear of medial meniscus, current injury, right knee, subsequent encounter; X58.XXXD Exposure to other specified factors, subsequent encounter; M75.21 Bicipital tendinitis, right shoulder; M19.011 Primary osteoarthritis, right shoulder | CPT/HCPCS: 20610; J1030 ==

== ENCOUNTER 2023-12-25 02:02 | Outpatient (CLI) | payer MEDICARE, OTHER, SELFPAY ==
[2023-12-25 11:49] LABS: Abs Immature Grans 0.01 10^3/uL (0.0-0.06); Absolute Basophil Count 0.04 10^3/uL (0.0-0.2); Absolute Eosinophil Count 0.19 10^3/uL (0.0-0.7); Absolute Lymphocyte Count 1.66 10^3/uL (1.2-3.4); Absolute Monocyte Count 0.38 10^3/uL (0.1-0.8); Absolute Neutrophil Count 2.87 10^3/uL (1.2-6.7); Basophils % 0.8; Eosinophils % 3.7; HCT 43.1 % (40.0-50.0); HGB 14.2 g/dL (13.5-17.5); Immature Grans % 0.2; Lymphocytes % 32.2; MCH 29.3 pg (27.0-33.0); MCHC 32.9 % (32.0-36.0); MCV 89 fL (80-95); Monocytes % 7.4; Neutrophils % 55.7; Platelet Count 229 10^3/uL (130-400); RBC 4.84 10^6/uL (4.36-5.78); RDW 12.9 % (11.8-14.1); RDW-SD 42.6 fL; WBC 5.15 10^3/uL (4.4-10.8)
[2023-12-25 12:35] LABS: Iron 90 ug/dL (65-175); Total Iron Binding Capacity 237 ug/dL (250-450)
[2023-12-25 12:38] LABS: Calculated LDL 171 mg/dL (<100); Cholesterol 256 mg/dL (<200); Ferritin 93 ng/mL (26-388); HDL Cholesterol 49 mg/dL (40-60); Triglyceride 184 mg/dL (<150)
[2023-12-28 10:05] LABS: Transferrin 187 mg/dL (201-352)
[2023-12-30 09:25] LABS: 1,25-Dihydroxyvitamin D 45 pg/mL (18-64)
== END 2023-12-25 02:03 | disposition home or self-care (01) ==
LOC: LBO 02:35
PROVIDERS: PCP Nurse Practitioner Family; Visit Provider Nurse Practitioner Family
DX: E78.5 Hyperlipidemia, unspecified (principal); D50.9 Iron deficiency anemia, unspecified; E55.9 Vitamin D deficiency, unspecified; Z98.84 Bariatric surgery status
CPT/HCPCS: 36415; 80061; 82652; 82728; 83540; 83550; 84466; 85025

== ENCOUNTER → 2023-12-30 08:54 | Outpatient (BNVA) | payer MEDICARE, OTHER, SELFPAY | PROVIDERS: PCP Nurse Practitioner Family; Referring Provider Nurse Practitioner Family; Visit Provider Student in an Organized Health Care Education/Training Program | DX: S83.241A Other tear of medial meniscus, current injury, right knee, initial encounter (principal); X58.XXXA Exposure to other specified factors, initial encounter; M22.41 Chondromalacia patellae, right knee | CPT/HCPCS: 99214 ==

== ENCOUNTER 2024-02-18 10:47 | Day surgery (SDC) | payer MEDICARE, OTHER, SELFPAY ==
[2024-02-18] VITALS (12 sets, daily range): BP systolic 86–138; BP diastolic 58–95; PULSE 51–59; RESP 11–16; TEMP 36.1–36.8; O2SAT 93–99; BMI 33.5
--- NOTE | 2024-02-18 10:38 | W.PM.DSUDISC ---
Date of service: 02/18/24 Time of Service: 15:00 Discharge Plan Disposition Patient Disposition: Home Condition: Stable Discharge Details Attending Provider: Christiano Rangel Primary Care Provider: Serafin Gonzalez Home Meds and New Rx's Prescriptions: New aspirin 81 mg tablet,delayed release (DR/EC) 81 mg PO DAILY 7 Days Qty: 7 0RF oxycodone 5 mg tablet 5 - 10 mg PO Q4H PRN (Reason: Moderate to severe pain) Qty: 12 0RF Continued albuterol sulfate 90 mcg/actuation HFA aerosol inhaler 2 puff inhalation Q6H PRN (Reason: shortness of breath or wheezing) Qty: 8.5 3RF calcium citrate 200 mg (950 mg) tablet 600 mg PO BID cyanocobalamin (vitamin B-12) 1,000 mcg capsule 1,000 mcg PO DAILY Qty: 90 4RF cholecalciferol (vitamin D3) 100 mcg (4,000 unit) capsule 4,000 unit PO DAILY Qty: 90 4RF acetaminophen 500 MG tablet 1,000 mg PO PRN Complete Multivitamin Tablet 1 tab PO DAILY Qty: 90 4RF sertraline 100 mg tablet 100 mg PO DAILY Qty: 90 3RF omeprazole 40 mg capsule,delayed release(DR/EC) 40 mg PO DAILY Qty: 90 4RF sertraline 50 mg tablet 50 mg PO DAILY Qty: 90 3RF Rx Instructions: Take in conjunction with the 100mg to equal 150mg daily. Discharge Instructions Additional Instructions: Surgery: Right knee arthroscopy with partial medial & lateral meniscectomy and chondroplasty Activity: Weightbearing as tolerated. Advance range of motion as comfort allows. No knee brace or crutches needed as soon as comfortable. Recommend avoiding sports, pivoting, and squatting for 6-8 weeks. A physical therapy prescription will be sent electronically to start in 2 to 3 weeks. Prescriptions: Aspirin 81 mg take 1 daily to prevent a blood clot for 7 days (discontinue if GI issues occur) Oxycodone 5 mg take 1-2 every 4-6 hours as needed for severe pain You may use [id number] Tylenol (acetaminophen) as needed for mild pain. These pain medications may be taken all at once or in different combinations as needed. Also, recommend Colace (docusate) as a stool softener as surgery and pain medicine cause constipation. You may try [id number] diphenhydramine (Benadryl) 25-50 mg nightly as a sleep aid Dressings: Leave dressing in place for 3 days. May then remove and leave open to air or cover incisions with Band-Aids. Leave the sticky Steri-Strips in place until they fall off or remove them after you shower. May shower after 5 days. Follow-up: 10-[address] Rangel You may take off the leg compression stockings this evening at home. You may also leave them on a few days longer if you have a history of leg swelling or edema. Let us know right away if you develop any redness, drainage, fevers, chest pain, or trouble breathing. Do not drink alcohol or drive for at least 24 hours after anesthesia. Please call the office during business hours with any questions or concerns. DS: Diagnosis Discharge Diagnosis (1) Acute medial meniscus tear of right knee: Status: Acute (2) Chondromalacia patellae of right knee: Status: Acute
--- NOTE | 2024-02-18 11:32 | W.ANESPRE ---
General Info Date of Service Date Performed: 02/18/24 Height: 6 ft 4 in Weight: 125 kg Body Mass Index (BMI): 33.5 Surgical Procedure: Operation Date: 02/18/24 12:10 Proposed Procedure Side Surgeon p Knee Arthroscopy, Likely Partial Medial Meniscectomy Right Christiano Rangel MD Meds Allergies and Home Medications Allergies Allergy/AdvReac Type Severity Reaction Status Date / Time pseudoephedrine Allergy Unknown BREATHING Verified 02/18/24 11:11 DIFFICULTY gabapentin AdvReac suicidal Verified 02/18/24 11:11 ideation, sleep disturbance Home Medication Medication Instructions Recorded acetaminophen 500 mg tablet 1,000 mg PO PRN 06/08/18 calcium citrate 200 mg (950 mg) 600 mg PO BID 09/15/18 tablet multivitamin,[id number]-[id number] 1 tab PO DAILY #90 tabs 08/15/19 (Complete Multivitamin tablet) cholecalciferol (vitamin D3) 100 4,000 unit PO DAILY #90 caps 09/06/20 mcg (4,000 unit) capsule cyanocobalamin (vitamin B-12) 1,000 mcg PO DAILY #90 caps 09/06/20 1,000 mcg capsule albuterol sulfate 90 mcg/actuation 2 puff inhalation Q6H PRN 01/27/22 aerosol inhaler shortness of breath or wheezing #8.5 grams omeprazole 40 mg capsule,delayed 40 mg PO DAILY #90 caps 02/25/23 release sertraline 100 mg tablet 100 mg PO DAILY #90 tabs 02/25/23 sertraline 50 mg tablet 50 mg PO DAILY #90 tabs 12/04/23 Current Visit Medications: Current Medications Generic Name Dose Route Start Last Admin Trade Name Freq PRN Reason Stop Dose Admin Ringer's Solution 1,000 mls @ 30 mls/hr 02/18/24 06:00 IV 03/18/24 23:59 INFUSION QUENTIN Cefazolin Sodium 3,000 mg/ 100 mls @ 200 mls/hr 02/18/24 06:00 Sodium Chloride IVPB 02/18/24 16:00 PREOP QUENTIN Tranexamic Acid/Sodium Chloride 1,000 mg in 100 mls @ 600 mls/hr 02/18/24 06:00 IVPB 02/18/24 16:00 PREOP QUENTIN IV Miscellaneous Supplies 1 each 02/18/24 06:00 Iv Access IV 03/18/24 23:59 DIRECTED QUENTIN Sodium Chloride 0 ml 02/18/24 06:00 Normal Saline Flush 10 Ml Syr IV 03/18/24 23:59 PRN PRN Sodium Chloride 0 ml 02/18/24 06:00 Normal Saline 10 Ml Vial IJ 03/18/24 23:59 DIRECTED PRN Sterile Water 0 ml 02/18/24 06:00 Water,Injection,Sterile 10 Ml Vial IJ 03/18/24 23:59 DIRECTED PRN PFSH Active Problems Active Problems: Problem Status Onset Code 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 Acute medial meniscus tear of right knee S83.241A Internal derangement of right knee ~07/2023 M23.91 Tendonitis of long head of biceps brachii of right shoulder M75.21 Arthritis of right glenohumeral joint M19.011 Rotator cuff tear, right M75.101 Kidney stone N20.0 Shortness of breath R06.02 Depression F32.A Right foot pain M79.671 Right knee pain M25.561 Hyperlipidemia E78.5 Anxiety F41.9 Migraine headache without aura G43.009 Vitamin B12 deficiency E53.8 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 Pt. states he stiffens up, shakes some, does fall down, pt. states he is not currently taking medication PTSD (post-traumatic stress disorder) Loud noises are potential triggers Surgical History Surgical History H/O gastric bypass Status post bariatric surgery UPPP (Uvulopalatopharyngoplasty) (01/09/09) Rotator Cuff Repair (~1993) Repair, Esotropia (01/09/74) EGD - MAC (01/09/10) Cholecystectomy (~2008) Tobacco Smoking/Tobacco Use Status: Never Passive smoking exposure: Yes Second hand exposure: Yes Alcohol Alcohol Intake: current Alcohol intake frequency: holidays/special occasions only Alcohol type: hard liquor Substance Use Substance use: Never Substance use type: does not use Vital Signs and Lab Results Vital Signs Most Recent Vital Signs in EMR: Most Recent Vital Signs Temp Pulse Resp BP Pulse Ox 36.1 C L 57 L 16 138/95 H 97 02/18/24 11:14 02/18/24 11:14 02/18/24 11:14 02/18/24 11:14 02/18/24 11:14 Lab Results Blood Type / Crossmatch: No Data to Display Complete Blood Count: No Data to Display Complete Metabolic Panel: No Data to Display Liver Function Panel: No Data to Display Coagulation Panel: No Data to Display Cardiac Panel: No Data to Display Arterial Blood Gas: No Data to Display Venous Blood Gas: No Data to Display Pancreas Panel: No Data to Display Thyroid Panel: No Data to Display Infectious Disease: No Data to Display Blood Cultures: No Data to Display Toxicology Panel: No Data to Display Imaging and Studies Imaging and Studies Study information below may be from another EMR and interpreted by another provider. Please see original notes in EMR for more complete details. Carotid Artery Summary:: 07/12/18 IMPRESSION: Minimal calcific plaque. No significant internal carotid artery stenosis. Pulmonary Function Summary: 01/13/22 PFT mild airflow obstruction with positive bronchodilator response Anesthesia Assessment and Plan Anesthesia History Personal History: No History of Anesthesia Complications Family History: Family History Unknown (reports mother while having an operation but unable to elaborate) Exercise Tolerance Exercise Tolerance: Metabolic Equivalents>4 Pertinent Negatives Pertinent Negatives: No Symptoms of GERD, No Major Cardiovascular Symptoms or Complaints, No Major Pulmonary Symptoms or Complaints and No History of CVA/TIA Cardiac & Pulmonary Exam Cardiac Exam: Normal S1/S2 Heart Sounds Pulmonary Exam: Clear Bilateral Breath Sounds Cardiac and Pulmonary Comment:: pt reports reflux that is controlled with meds and no s/s today Implantable Cardiac Device Does patient have a Pacemaker or an ICD?: No Airway Exam Known Difficult Airway: No Mallampati Class: 2 Mouth Opening: Normal (> 3cm) Thyromental Distance: Greater than 3 cm Facial Hair: Full Marlow Neck Range of Motion: Full ROM Neck Circumference: Normal Teeth Condition: Loose or Chipped (pt reports some chipped molars both sides) ASA Classification ASA Score: ASA 2 Emergency Case?: No NPO Status NPO Status: NPO Clears >2 hours, Solids >8 hours Anesthesia Plan Resuscitation Status: Full Code Anesthesia Technique: General Anesthesia Airway Planned: LMA Monitors Used: Standard Monitors
[2024-02-18] MEDS: Lactated Ringers 1,000 ML 30 ML IV (11:34)
[2024-02-18] MEDS: ceFAZolin 3,000 MG in Normal Saline 100 ML 200 MG IVPB (12:59)
[2024-02-18] MEDS: TRANEXAMIC ACID/SOD. CHL. 1,000 MG/100 ML BAG 600 MG IVPB (13:10)
[2024-02-18] MEDS: EPINEPHrine 10 MG/10 ML ML (13:51)
--- NOTE | 2024-02-18 14:04 | W.PM.OP ---
Date of service: 02/18/24 Time of Service: 13:00 Operative Note Operative Note DATE OF PROCEDURE: 02/18/24 PRE-OP DIAGNOSIS: Right knee 1. Medial meniscus tear 2. Chondromalacia POST-OP DIAGNOSIS: same Right knee 1. Medial & lateral meniscus tears 2. Chondromalacia 3. Synovitis PROCEDURE: Right knee 1. Partial medial & lateral meniscectomy, CPT #42075 2. Chondroplasty, CPT #55283: Medial femoral condyle, lateral tibia, trochlea, and patella SURGEON: Christiano Rangel PLUCK TRIMMER: None None ANESTHESIA TYPE: Local By Surgeon and General LMA/ETT Refer to Anesthesia Record PATHOLOGY: none sent TOURNIQUET TIME: 0 Patient was transported to: PACU Patient's condition: stable Indications: Please see complete medical record for details. Findings: Exam under anesthesia: Good range of motion, stable varus valgus Kt. Arthroscopic findings: Moderate global chondromalacia, most significant undersurface patella, moderate trochlea, diffuse moderate medial femoral condyle, less significant laterally. Small anterior horn medial meniscus tear, no obvious tear of the body, small posterior horn lateral meniscus tear. Significant intercondylar and anterior synovitis. Procedure Description: In the operating room, general anesthesia was induced. The patient was positioned supine on the operating room table. All bony prominences were well-padded. Preoperative antibiotics were administered. The knee was prepped and draped in the usual sterile fashion. The correct patient, procedure, and side of the procedure were all verified prior to incision. Exam under anesthesia was performed. 10 cc of 0.25% bupivacaine containing epinephrine was infiltrated about the planned anteromedial and anterolateral knee arthroscopy portals. The portals were established and a complete diagnostic arthroscopy was performed with relevant findings detailed above. Significant synovitis had to be resected including an intact ligamentum mucosum to perform the diagnostic arthroscopy. The medial meniscus was thoroughly probed and inspected but did not have any tearing that connected to the inferior or superior margins. The root was stable. About the area of the meniscus intrasubstance tearing on the MRI, an 18-gauge needle was directed through a single puncture in the skin medially at the joint line and into the meniscocapsular junction and used to trephinate thoroughly anterior and posteriorly about the tear margin. Care was taken to not sharpe the meniscus white zone. A small amount of anterior horn meniscus was trimmed and debrided using the torpedo shaver. The remainder of meniscus was probed and stable without any other tears. In the lateral compartment there was some undersurface peripheral posterior horn lateral meniscus fraying as well as some fraying near the root that was debrided with a torpedo shaver. Working through all the compartments the torpedo shaver was used to resect cartilage fissuring and fibrillation to a stable margin including about the majority of the medial femoral condyle moderate chondromalacia, more mild about the lateral plateau and near the lateral tibial spine, moderately about the trochlea, and the undersurface patella had high-grade chondromalacia and only amenable to minimal resection. The knee was copiously irrigated with arthroscopic fluid until there was a clear effluent before being drained of all fluid. The anteromedial and anterolateral portals were closed in 3-0 Monocryl in a buried interrupted fashion. 20 cc of 0.25% bupivacaine with epinephrine was infiltrated about the medial and lateral knee joints. Mastisol, Steri-Strips, and 4 x 4 gauze were applied over the incisions. The knee was then wrapped gently with an SHARI comressive bandage. The patient awoke from anesthesia without complication and was transferred to the recovery room in a stable condition.
[2024-02-18] MEDS: HYDROmorphone 2 MG/ML SYR IVP ×2 (15:11→15:22)
--- NOTE | 2024-02-18 16:38 | W.ANESPOSTOP ---
Postoperative Evaluation Date, Time and Location Date Performed: 02/18/24 Time Performed: 16:38 Patient Location: Day Surgery Unit Vital Signs Most Recent Imported Vital Signs: Most Recent Vital Signs Temp Pulse Resp BP Pulse Ox 36.6 C 59 L 16 106/73 97 02/18/24 16:00 02/18/24 16:00 02/18/24 16:00 02/18/24 16:00 02/18/24 16:00 Pain Score Most Recent Pain Score: Most Recent Pain Score Pain Level 4 02/18/24 16:00 Assessment Mental Status: Awake (Alert & Oriented to Patient Baseline) Airway and Respiratory Function: Patent airway with normal (patient baseline) respiratory exam Cardiovascular Function: Hemodynamically Stable Hydration Status: Adequately Hydrated Nausea & Vomiting: No Nausea or Vomiting Pain: Pain is tolerable per patient Peripheral Nerve Block: Patient did not receive a nerve block
== END 2024-02-18 17:15 | disposition home or self-care (01) ==
LOC: SUR 10:47
PROVIDERS: PCP Nurse Practitioner Family; Visit Provider Student in an Organized Health Care Education/Training Program
PROC: (CPT 29870; principal; 2024-02-18 12:00)
DX: M23.251 Derangement of posterior horn of lateral meniscus due to old tear or injury, right knee (principal); M23.231 Derangement of other medial meniscus due to old tear or injury, right knee; M65.861 Other synovitis and tenosynovitis, right lower leg; M94.261 Chondromalacia, right knee
CPT/HCPCS: 29880; J0690; J1100; J1170; J1885; J2001; J2250; J2270; J2371; J2405; J2704

== ENCOUNTER → 2024-03-02 08:10 | Outpatient (BNVA) | payer MEDICARE, OTHER, SELFPAY | PROVIDERS: PCP Nurse Practitioner Family | DX: S83.241D Other tear of medial meniscus, current injury, right knee, subsequent encounter (principal); X58.XXXD Exposure to other specified factors, subsequent encounter; M22.41 Chondromalacia patellae, right knee ==

== ENCOUNTER → 2024-04-20 09:06 | Outpatient (BNVA) | payer MEDICARE, OTHER, SELFPAY | PROVIDERS: PCP Nurse Practitioner Family; Referring Provider Nurse Practitioner Family; Visit Provider Student in an Organized Health Care Education/Training Program | DX: S83.241D Other tear of medial meniscus, current injury, right knee, subsequent encounter (principal); X58.XXXD Exposure to other specified factors, subsequent encounter; M22.41 Chondromalacia patellae, right knee ==

== ENCOUNTER → 2024-12-13 10:44 | Outpatient (BNVA) | payer MEDICARE, OTHER, SELFPAY | PROVIDERS: PCP Nurse Practitioner Family; Referring Provider Nurse Practitioner Family; Visit Provider Student in an Organized Health Care Education/Training Program | DX: M22.41 Chondromalacia patellae, right knee (principal); S83.241A Other tear of medial meniscus, current injury, right knee, initial encounter; X58.XXXA Exposure to other specified factors, initial encounter | CPT/HCPCS: 99213 ==

== ENCOUNTER 2025-01-05 02:09 | Outpatient (CLI) | payer MEDICARE, OTHER, SELFPAY ==
--- NOTE | 2025-01-05 10:20 | DI.MRI_ITS ---
Exam(s) MR LOWER JOINT RT WO EXAM: MR LOWER JOINT RT WO CLINICAL HISTORY: R KNEE PAIN,ACUTE MEDIAL MENISCUS TEAR,CHONDROMALACIA PATELLA,M22.41 TECHNIQUE: Multiplanar multisequence MRI of the knee was performed. COMPARISON: CR XR KNEE RT 3V AP,LAT,TIMOTHY from 09/09/2023 MR MR LOWER JOINT RT WO from 09/30/2023 FINDINGS: EFFUSION: There is a moderate size right knee joint effusion. There is no Patiño cyst in the poplitea l fossa. MARROW:There are no fractures. However, there is now some subarticular bone edema located focally in the outer aspect of the medial tibial plateau subjacent to the posterior horn the torn medial menisc us. There is also small area of subcortical marrow edema in the most posterior aspect of the medial femoral condyle, not previously evident on the MRI scan of September 2023. PATELLOFEMORAL COMPARTMENT: There is mild subcutaneous fluid anterior to the lower half of the patell a consistent with mild prepatellar bursitis. The quadriceps tendon appears intact. There is some in creased signal seen within the intra articular quadriceps fat pad just above the superior pole of the patella. There is some thinning of the retropatellar cartilage over the mid-medial facet of the patella, simil ar to the previous September 2023 study. There is no osteochondral defect at this level. No intraoss eous signal in the patella to suggest recent patellar dislocation. There is no evidence of significa nt patellar retinaculum tears. CRUCIATE LIGAMENTS: The anterior cruciate ligament is intact.The posterior cruciate ligament is intac t. MEDIAL COMPARTMENT/MEDIAL MENISCUS: There is a tear of the posterior horn of the medial meniscus whic h is more evident than previous. The outer 3rd of the meniscus exhibits oblique tearing more so than previous. There is also foreshortening of the body, not previously present. The meniscal root ankur ins intact. There is signal abnormality in the posterior aspect of the medial patellar retinaculum a t its junction with the MCL. The main component of the MCL appears intact. There is marginal osteophyte off the inner aspect of the medial femoral condyle now evident. There i s mild-moderate articular cartilage thinning in the outer 3rd of the medial compartment at the level overlying the torn posterior meniscus. There is some mild bone edema in the subjacent outer aspect o f the medial tibial plateau. MEDIAL COLLATERAL LIGAMENT: As above. There is some partial tearing signal at the junction of the MC L and posterior aspect of the medial patellar retinaculum. The main component of the MCL, however, a ppears intact. LATERAL COMPARTMENT/LATERAL MENISCUS: There is no evidence of lateral meniscal tear.There are no melba dral defects, osteochondral defects, subarticular marrow edema, nor osteophytes evident. ILIOTIBIAL BAND: Intact LATERAL COLLATERAL LIGAMENT COMPLEX: The fibular collateral ligament is intact. The biceps femoris t endon is intact.Popliteus muscle and tendon are intact. IMPRESSION: 1. There is tear of the posterior horn of the medial meniscus which exhibits both oblique and horizon abdiel component and some progression when compared to the MRI images of September 2023. There is also s ome articular cartilage thinning over this region in the outer 3rd of the medial compartment. 2. There is partial tearing medial capsule structures at the junction of the medial patellar retinacu lum and the MCL. However, the main component of the medial collateral ligament appears intact. 3. There are no significant findings in the lateral compartment. 4. Cruciate ligaments are intact as are the components of the lateral collateral ligament complex. 5. Some articular cartilage loss is again noted over the medial aspect of the patellofemoral compart ment retropatellar cartilage, similar to previous. There is no true osteochondral defect at this lev el. There is a significant size joint effusion. There is no Patiño cyst. DATA REPOSITORY:
== END 2025-01-05 02:29 ==
LOC: DI 02:09
PROVIDERS: PCP Nurse Practitioner Family; Visit Provider Student in an Organized Health Care Education/Training Program
DX: S83.241A Other tear of medial meniscus, current injury, right knee, initial encounter; X58.XXXA Exposure to other specified factors, initial encounter
CPT/HCPCS: 73721

== ENCOUNTER → 2025-01-11 10:40 | Outpatient (BNVA) | payer MEDICARE, OTHER, SELFPAY | PROVIDERS: PCP Nurse Practitioner Family; Referring Provider Nurse Practitioner Family; Visit Provider Student in an Organized Health Care Education/Training Program | DX: S83.241D Other tear of medial meniscus, current injury, right knee, subsequent encounter (principal); X58.XXXD Exposure to other specified factors, subsequent encounter; M22.41 Chondromalacia patellae, right knee | CPT/HCPCS: 99213 ==

== ENCOUNTER → 2025-04-05 09:53 | Outpatient (BNVA) | payer MEDICARE, OTHER, SELFPAY | PROVIDERS: PCP Nurse Practitioner Family; Referring Provider Nurse Practitioner Family; Visit Provider Student in an Organized Health Care Education/Training Program | DX: S83.241A Other tear of medial meniscus, current injury, right knee, initial encounter (principal); M22.41 Chondromalacia patellae, right knee; M19.011 Primary osteoarthritis, right shoulder; X58.XXXA Exposure to other specified factors, initial encounter | CPT/HCPCS: 99214 ==

== ENCOUNTER 2025-05-04 02:06 | Outpatient (CLI) | payer MEDICARE, OTHER, SELFPAY ==
--- NOTE | 2025-05-04 06:15 | DI.MRI_ITS ---
Exam(s) MR UPPER JOINT RT WO EXAM: MR UPPER JOINT RT WO CLINICAL HISTORY: SURGICAL PLANNING,arthritis rt glenohumeral joint,m19.011 TECHNIQUE: Multiplanar multisequence MRI of the shoulder was performed. COMPARISON: CR XR SHOULDER RT COMPLETE 2+V from 03/17/2023 MR MR UPPER JOINT RT WO from 04/30/2023 FINDINGS: MARROW:There is no evidence of fracture, Hill-Sachs deformity, nor ominous osseous lesions. There is again noted a small benign appearing lesion in the humeral head which is probably a small enchondroma. There is evidence of interval surgery since the prior MRI examination of 04/30/2023. GLENOHUMERAL JOINT: There is no prominent joint effusion nor obvious loose intra-articular bodies. There are significant osteoarthritic degenerative changes. There is some articular cartilage thinning and there is a moderate size osteophyte on the inferior articular surface of the humeral head. There are degenerative subarticular cyst in the lateral aspect of the humeral head. ROTATOR CUFF MECHANISM: AC JOINT/ACROMIUM: There are mild-moderate degenerative changes in the AC joint.. There is no evidence of os acromiale. Supraspinatus: Some tendinitis signal. Also some partial-thickness tearing. There does not appear to be a full-thickness tear. No prominent muscle atrophy. Infraspinatus: The tendinitis signal. No high-grade tear. No muscle atrophy. Teres Minor: Intact. No evidence of tear nor muscle atrophy. Subscapularis/anterior cuff: Intact. No significant tear. No atrophy. BICEPS TENDON: There is a biceps tenodesis site on the anterior humeral head. Biceps tendon within the intertubercular groove appears intact. LABRUM: There is deficiency of the superior labrum. There is also surface irregularity of the posterior labrum. The anterior labrum appears intact. Inferior glenohumeral ligament appears somewhat thinned. IMPRESSION: 1. Compared to the prior MRI of April 2023 there has been interval rotator cuff surgery in what appears to be a biceps tenodesis in the anterior aspect of the humeral head. 2. There is significant osteoarthritic degenerative change in the glenohumeral joint as described above. This exhibits some further progression from 2022. There is no prominent joint effusion and no obvious loose intra-articular bodies. 3. There is tenderness and partial-thickness tearing in the supraspinatus but no full-thickness tear. 4. There is some tendinitis signal at the insertional aspect of the infraspinatus. No full-thickness tear. 5. Multilevel labral abnormalities suspect for multilevel degenerative labral tearing. 6. Biceps tendon is not displaced from the intertubercular groove. 7. There is a small unchanged benign-appearing bone lesion in the humeral head measuring approximately 8 x 7 mm and probably a benign enchondroma. There is no surrounding marrow edema. DATA REPOSITORY:
--- NOTE | 2025-05-04 06:15 | DI.CT_ITS ---
Exam(s) CT UPPER EXTREMITY RT WO EXAM: CT UPPER EXTREMITY RT WO CLINICAL HISTORY: SURGICAL PLANNING,arthritis rt glenohumeral joint,m19.011 TECHNIQUE: Imaging Protocol: Axial computed tomography images with coronal and sagittal reformatted images were created and reviewed. CONTRAST MATERIAL: Intravenous: None COMPARISON: CR XR SHOULDER RT COMPLETE 2+V from 03/17/2023 FINDINGS: OSSEOUS: No evidence of fracture nor dislocation. There are significant osteoarthritic degenerative changes in the glenohumeral joint with joint space narrowing and there is a moderate size daily-type osteophyte on the inferior articular surface of the humeral head. Degenerative this is noted at the level the greater tuberosity. There are no degenerative subarticular cysts in the osseous glenoid. Mild degenerative changes in the AC joint. There are no soft tissue calcifications in the subacromial space. zNo evidence of os acromiale. No significant osseous lesions. IMPRESSION: Advanced osteoarthritic degenerative changes in the glenohumeral joint. RADIATION DOSE DELIVERED: 273.98mGy.cm Total DLP DATA REPOSITORY: All CT scans at this facility are submitted to the National Radiology Data Registry (NRDR) Dose Index Registry (DIR) with the [employer] ([employer]). RADIATION OPTIMIZATION: All CT scans at this facility use at least one of these dose optimization techniques: automated exposure control; mA and/or kV adjustment per patient size (includes targeted exams where dose is matched to clinical indication); or iterative reconstruction.
== END 2025-05-04 02:26 ==
LOC: DI 02:06
PROVIDERS: PCP Nurse Practitioner Family; Visit Provider Student in an Organized Health Care Education/Training Program
DX: M19.011 Primary osteoarthritis, right shoulder (principal)
CPT/HCPCS: 73200; 73221

== ENCOUNTER → 2025-05-09 09:29 | Outpatient (BNVA) | payer MEDICARE, OTHER, SELFPAY | PROVIDERS: PCP Nurse Practitioner Family; Referring Provider Nurse Practitioner Family; Visit Provider Student in an Organized Health Care Education/Training Program | DX: M19.011 Primary osteoarthritis, right shoulder (principal) | CPT/HCPCS: 99214 ==

== ENCOUNTER 2025-05-19 05:52 | Day surgery (SDC) | payer MEDICARE, OTHER, SELFPAY ==
[2025-05-19] VITALS (38 sets, daily range): BP systolic 81–134; BP diastolic 45–95; PULSE 55–74; RESP 14–23; TEMP 36–36.5; O2SAT 93–98; BMI 31.6
--- NOTE | 2025-05-19 04:13 | W.ANESPRE ---
General Info Date of Service Date Performed: 05/19/25 Height: 6 ft 4 in Weight: 117.934 kg Body Mass Index (BMI): 31.6 Surgical Procedure: Operation Date: 05/19/25 07:40 Proposed Procedure Side Surgeon p Shoulder Reverse Total Arthroplasty Right Christiano Rangel MD Meds Allergies and Home Medications Allergies Allergy/AdvReac Type Severity Reaction Status Date / Time pseudoephedrine Allergy Unknown BREATHING Verified 05/19/25 06:18 DIFFICULTY gabapentin AdvReac suicidal Verified 05/19/25 06:18 ideation, sleep disturbance Home Medication ?Medication ?Instructions ?Recorded acetaminophen 500 mg tablet 1,000 mg PO PRN 06/08/18 calcium citrate 600 mg PO BID 09/15/18 multivitamin,[id number]-[id number] 1 tab PO DAILY #90 tabs 08/15/19 (Complete Multivitamin tablet) cholecalciferol (vitamin D3) 100 4,000 unit PO DAILY #90 caps 09/06/20 mcg (4,000 unit) capsule cyanocobalamin (vitamin B-12) 1,000 mcg PO DAILY #90 caps 09/06/20 1,000 mcg capsule simvastatin 5 mg tablet 5 mg PO QHS #90 tabs 04/06/24 omeprazole 40 mg capsule,delayed 40 mg PO DAILY #90 caps 06/20/24 release albuterol sulfate 90 mcg/actuation 2 puff inhalation Q6H PRN 01/06/25 aerosol inhaler shortness of breath or wheezing #8.5 grams sertraline 100 mg tablet 100 mg PO DAILY #90 tabs 01/06/25 sertraline 50 mg tablet 50 mg PO DAILY #90 tabs 01/06/25 Current Visit Medications: Current Medications Generic Name Dose Route Start Last Admin Trade Name Freq PRN Reason Stop Dose Admin Ringer's Solution 1,000 mls @ 30 mls/hr 05/19/25 06:00 IV 05/19/25 23:59 INFUSION QUENTIN Cefazolin Sodium 3,000 mg/ 100 mls @ 200 mls/hr 05/19/25 06:00 Sodium Chloride IV 05/19/25 23:59 PREOP QUENTIN Tranexamic Acid/Sodium Chloride 1,000 mg in 100 mls @ 600 mls/hr 05/19/25 06:00 IVPB 05/19/25 23:59 PREOP QUENTIN IV Miscellaneous Supplies 1 each 05/19/25 06:00 Iv Access IV 05/19/25 23:59 DIRECTED QUENTIN Sodium Chloride 0 ml 05/19/25 06:00 Normal Saline Flush 10 Ml Syr IV 05/19/25 23:59 PRN PRN Sodium Chloride 0 ml 05/19/25 06:00 Normal Saline 10 Ml Vial IJ 05/19/25 23:59 DIRECTED PRN Sterile Water 0 ml 05/19/25 06:00 Water,Injection,Sterile 10 Ml Vial IJ 05/19/25 23:59 DIRECTED PRN PFSH Active Problems Active Problems: Problem Status Onset Code Chondromalacia patellae of right knee Acute M22.41 Acute medial meniscus tear of right knee Acute S83.241A Tendonitis of long head of biceps brachii of right shoulder Acute M75.21 Arthritis of right glenohumeral joint Acute M19.011 Rotator cuff tear, right Acute M75.101 Kidney stone Chronic N20.0 Shortness of breath Acute R06.02 Depression Chronic F32.A Right foot pain Acute M79.671 Right knee pain Acute M25.561 Hyperlipidemia Acute E78.5 Anxiety Chronic F41.9 Migraine headache without aura Acute G43.009 Vitamin B12 deficiency Acute E53.8 Psychiatric pseudoseizure Acute F44.5 Peripheral neuropathy Acute G62.9 Meralgia paresthetica of right side Chronic G57.11 Right lumbar radiculopathy Chronic M54.16 Vitamin D deficiency Chronic 11/29/14 E55.9 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 Pt. states he stiffens up, shakes some, does fall down, pt. states he is not currently taking medication 05/17/25: states he is not on any anti-seizure medications however he states he does have them 3x a week, last one was yesterday. Per pt. states he stiffens up and shakes some, does on occasion and fall down. Pt. states he got sick of pills and feeling like he was in a fog all the time PTSD (post-traumatic stress disorder) Loud noises are potential triggers Surgical History Surgical History H/O gastric bypass Status post bariatric surgery UPPP (Uvulopalatopharyngoplasty) (01/09/09) Rotator Cuff Repair (~1993) Repair, Esotropia (01/09/74) EGD - MAC (01/09/10) Cholecystectomy (~2008) Tobacco Smoking/Tobacco Use Status: Never Passive smoking exposure: Yes Second hand exposure: Yes Alcohol Alcohol Intake: current Alcohol intake frequency: holidays/special occasions only Alcohol type: hard liquor Substance Use Substance use: Never Substance use type: does not use Vital Signs and Lab Results Vital Signs Most Recent Vital Signs in EMR: Temp Pulse Resp BP Pulse Ox 36.5 C 57 L 16 134/95 H 98 05/19/25 06:10 05/19/25 06:10 05/19/25 06:10 05/19/25 06:10 05/19/25 06:10 Imaging and Studies Imaging and Studies Study information below may be from another EMR and interpreted by another provider. Please see original notes in EMR for more complete details. Carotid Artery Summary:: 07/12/18 IMPRESSION: Minimal calcific plaque. No significant internal carotid artery stenosis. Pulmonary Function Summary: 01/13/22 PFT mild airflow obstruction with positive bronchodilator response Anesthesia Assessment and Plan Anesthesia History Personal History: No History of Anesthesia Complications Family History: Family History Unknown Exercise Tolerance Exercise Tolerance: Metabolic Equivalents>4 Cardiac & Pulmonary Exam Cardiac Exam: Normal S1/S2 Heart Sounds Pulmonary Exam: Clear Bilateral Breath Sounds Implantable Cardiac Device Does patient have a Pacemaker or an ICD?: No Airway Exam Known Difficult Airway: No Mallampati Class: 2 Mouth Opening: Normal (> 3cm) Thyromental Distance: Greater than 3 cm Neck Range of Motion: Full ROM Neck Circumference: Normal Teeth Condition: Loose or Chipped (pt reports some chipped molars both sides) ASA Classification ASA Score: ASA 2 Emergency Case?: No NPO Status NPO Status: NPO Clears >2 hours, Solids >8 hours Anesthesia Plan Resuscitation Status: Full Code Anesthesia Technique: General Anesthesia Airway Planned: Endotracheal Tube Pain Management: Surgeon and patient request nerve block Monitors Used: Standard Monitors Preoperative Comments:: 50 yo male for reverse total shoulder. Sig PMHx: ORESTES (s/p UPPP), RAD (albuterol - rare), GERD (omeprazole. Well controlled), anxiety, psychogenic seizures, peripheral neuropathy, PTSD, lumbar radiculopathy. never smoker. Previous Anes: - Knee scope, LMA 5, masked with OPA, no issues. - shoulder scope, glide 4 grade 1. ISB with 10 mL of experal/10 mL 0.5 and dexamethasone and epi. states block lasted 2 days. Discussed GA with regional anesthesia. Discussed risks is regional anesthesia, such as block failure, side effects of brachial plexus block. Also discussed risk of nerve injury associated with nerve block (~1:5000) and that nerve injuries can also happen due to positioning for total shoulder/shoulders, along with surgery itself (1:1000).
--- NOTE | 2025-05-19 07:09 | PDOC.DSDIS_ITS ---
Date of service: 05/19/25 Discharge Plan Disposition Patient Disposition: Home Condition: Stable Discharge Details Attending Provider: Christiano Rangel Primary Care Provider: Serafin Gonzalez Home Meds and New Rx's Prescriptions: New naproxen 250 mg tablet 250 mg PO BID PRN (Reason: Moderate pain) Qty: 10 0RF oxycodone 5 mg tablet 5 - 10 mg PO Q4H PRN (Reason: Moderate to severe pain) Qty: 18 0RF Continued calcium citrate 200 mg (950 mg) tablet 600 mg PO BID cyanocobalamin (vitamin B-12) 1,000 mcg capsule 1,000 mcg PO DAILY Qty: 90 4RF cholecalciferol (vitamin D3) 100 mcg (4,000 unit) capsule 4,000 unit PO DAILY Qty: 90 4RF sertraline 100 mg tablet 100 mg PO DAILY Qty: 90 3RF sertraline 50 mg tablet 50 mg PO DAILY Qty: 90 3RF Rx Instructions: Take in conjunction with the 100mg to equal 150mg daily. albuterol sulfate 90 mcg/actuation HFA aerosol inhaler 2 puff inhalation Q6H PRN (Reason: shortness of breath or wheezing) Qty: 8.5 3RF acetaminophen 500 MG tablet 1,000 mg PO PRN Complete Multivitamin Tablet 1 tab PO DAILY Qty: 90 4RF simvastatin 5 mg tablet 5 mg PO QHS Qty: 90 3RF omeprazole 40 mg capsule,delayed release(DR/EC) 40 mg PO DAILY Qty: 90 4RF Discharge Instructions Additional Instructions: Surgery: Right reverse total shoulder arthroplasty with revision biceps tenodesis and removal of hardware 05/19/25 Activity: Do not lift anything heavier than a coffee. You should keep your arm at your side in a relatively neutral position at all times except for gentle range of motion exercises, physical therapy, and essential activities. You should use the sling whenever you are out of the house. At home it is best to remove the sling and rest the arm on a pillow at your side or support the operative side with your other hand. A physical therapy prescription will be sent electronically to start in about 3 weeks. STANDARD Reverse TSA Protocol. Prescriptions: Naproxen 250 mg take 1 every 12 hours with a meal as needed for moderate pain (use sparingly, and with omeprazole given history of gastric bypass surgery) Oxycodone 5 mg take 1-2 every 4-6 hours as needed for severe pain You may use [id number] Tylenol (acetaminophen) as needed for mild pain. These pain medications may be taken all at once or in different combinations as needed. Also, recommend Colace (docusate) as a stool softener as surgery and pain medicine cause constipation. You may try mrdz-[id number] diphenhydramine (Benadryl) 25-50 mg nightly as a sleep aid Dressings: Leave dressing in place until follow-up. Keep clean and dry at all times. No showers please. Follow-up: 10-[address] Rangel You may take off the leg compression stockings this evening at home. You may also leave them on a few days longer if you have a history of leg swelling or edema. Please call the office during business hours with any questions or c oncerns. Let us know right away if you develop any redness, drainage, fevers, chest pain, or trouble breathing. Do not drink alcohol or drive for at least 24 hours after anesthesia. Discharge Orders Discharge Orders: Discharge Order (Routine); Ordered 05/19/25 Ordered By: Faraz Riley DS: Diagnosis Discharge Diagnosis (1) Arthritis of right glenohumeral joint: Status: Acute (2) Rotator cuff tear, right: Status: Acute (3) Retained orthopedic hardware: Status: Acute
[2025-05-19] MEDS: Lactated Ringers 1,000 ML 30 ML IV (07:10)
--- NOTE | 2025-05-19 07:22 | W.PM.OP ---
Operative Note Operative Note PRE-OP DIAGNOSIS: Right: 1. Partial rotator cuff tearing and repair 2. Glenohumeral arthritis 3. Prior arthroscopic biceps tenodesis PROCEDURE: Right: 1. Reverse total shoulder arthroplasty, CPT # 01635 2. Open revision biceps tenodesis, CPT # 07539: Revision arthroscopic to open suprapectoral biceps tenodesis 3. Removal of deep implant, CPT #32254: Permanent plastic tip suture anchor proximal humerus and permanent suture material subscapularis and biceps The embroidery assistant was medically required as this procedure involves retraction, protection of neurovascular structures, and manipulation of multiple instruments and implants at the same time, which cannot be done without a skilled embroidery assistant. SURGEON: Christiano Rangel BID WRITER: Faraz Riley ANESTHESIA TYPE: Local By Surgeon, General LMA/ETT and Primary Nerve Block Refer to Anesthesia Record ESTIMATED BLOOD LOSS: 150 COMPLICATIONS: None Patient was transported to: PACU Patient's condition: stable Implants: DePuy connex.ioance shoulder system Small modular baseplate with 35 mm central screw 35, 25, and 25 mm peripheral locking screws 40 mm +4 mm glenosphere Large short length stem +0 mm humeral shell and +4 mm liner Indications: See medical record for details Findings: Intact prior arthroscopic biceps tenodesis and upper margin subscapularis repair. Retained permanent suture tape material. Resorbed normally biocomposite SwiveLock anchor from prior combined biceps induces subscapularis repair with permanent plastic tip embedded in the proximal humerus blocking the proximal humerus fixation. Partial thickness thinning and tearing supraspinatus and to a lesser extent subscapularis. High-grade glenohumeral joint degenerative arthritic changes. Procedure Description: In the operating room, general anesthesia was induced. The patient was positioned beachchair on the operating room table. All bony prominences were well-padded. Preoperative antibiotics were administered. The shoulder was prepped and draped in the usual sterile fashion for shoulder arthroplasty. The correct patient, procedure, and side of the procedure were all verified prior to incision. The deltopectoral approach was preinjected with 0.25% bupivacaine containing epinephrine and taken to the anterior shoulder. Care was taken to bluntly dissect the interval between the deltoid and pectoralis major muscles and to identify the cephalic vein within its fat stripe. The vein was preserved and mobilized laterally. Subdeltoid space and conjoined tendon were freed of adhesions. The long head of the biceps tendon was identified tenodesed at the upper margin of the bicipital groove, but the remainder through the groove was still mobile so it was tenodesed lower using suture tape [id number] to the upper margin of the pectoralis major after releasing less than 1 cm of the proximal margin. The proximal portion of the biceps was then removed with the permanent suture material from the prior tenodesis. Rotator interval was identified proximally and subscapularis peel was performed after removing permanent suture material about the intact upper margin repair taking care to release the entire tendon from superior to inferior while bringing the arm gradually into external rotation with a tagging suture for later traction and potential repair. Care was taken to avoid the axillary nerve by only working on the bone inferiorly and medially. The supraspinatus was debrided of the leading edge partial tearing to a moderately thin but stable central portion. Appropriate coagulation was achieved especially interiorly. The anatomic neck was cut using an oscillating saw after templating with the cut and reamer guides with the humeral head bone brought back table in case there was a need for future bone grafting. Attention was then turned to the glenoid and retractors were placed and a circumferential release performed removing soft tissue about the glenoid rim. Care was taken inferiorly to work on bone only between 5 and 7:00 o'clock and bluntly elevate tissues inferiorly. The glenoid was sized and guidepin inserted accounting for patient version and inclination. The guidepin was advanced just through the far cortex ensuring adequate central fixation length. The one step prep glenoid reamer was then used to prepare glenoid according to judo teacher specifications. The baseplate was impacted onto the glenoid surface. The central compression screw was placed. The central screw checker/stocker was used to confirm the central screw was fully seated. The locking guide was then used to drill and place appropriately lengthed inferior, anterior, and posterior screws. The ciqq-ykk-tjwbxgkyy reamer was used to achieve adequate peripheral reaming. A trial +8 mm glenosphere was attached. The proximal humerus was delivered from the wound with adduction and external rotation. The humerus was sized and pin placed. Reaming and blazing were done over the pin, but the permanent plastic tip of the retained suture anchor was in the way so it had to be removed from the bone and any plastic pieces irrigated away before reaming and blazing could be completed. The stem pin punch was used through the blazer to confirm distal path, which seem to justhit the intramedullary cortical bone a few sizes too soon. The final stem was aligned after confirming the trajectory, but could not be fully seated without the tip probably being blocked by bone. In order to prevent a problem like fracture, the trial stem was then placed showing a couple millimeters of bony difference between the cut and probably humeral canal. A rongeur was used to remove some posterior but mostly superior bone to correct the angle slightly. The Blazer and pin punch were used again with a more feeling down the canal. Bone graft cancellous from the backside humeral head was then impacted about the previously trialed surface for best fit and the Blazer used in the new slightly adjusted confirmed path to impact this bone nicely. The final large stem was then impacted seating well without issues. Trialing was started with a +0 mm shell and liner with modest tension. The shoulder was then dislocated and trial glenosphere removed, final glenosphere applied with the certified solid waste facility operator and impacted to engage the Wright taper. It was then locked with appropriate countersinking of the setscrew. The glenosphere had good fit, appropriate positioning, and no soft tissue or bony impingement. Trialing was then built up on the humeral side two +4 mm liner, which demonstrated excellent stability and good tension on the deltoid and conjoined tendon. The subscapularis was confirmed to be mobile, but given the +8 glenoid side and +4 humeral side length and lateralization, did not have adequate excursion to the lesser tuberosity so it was tenotomized. Trial shell and liner were removed. The final shell was impacted onto the humeral stem and final liner was clicked into place. The shoulder was reduced and range of motion, stability, and tension confirmed all appropriate. The shoulder was copiously irrigated with Betadine and normal saline. Vancomycin powder was distributed deeply about the shoulder and through subcutaneous tissues. The deltopectoral interval was approximated with 2-0 Monocryl burying the cephalic vein. Subcutaneous tissue was irrigated then closed using 2-0 Monocryl in a buried interrupted fashion. Skin was closed using 3-0 Monocryl in a buried subcuticular fashion. Skin glue was applied to the incision. A silver impregnated bandage was placed over the incision. The extremity was placed into a shoulder immobilizer. The patient awoke from anesthesia without complication and was taken to the recovery room in stable condition. Date of Procedure: 05/19/25
[2025-05-19] MEDS: ceFAZolin 3,000 MG in Normal Saline 100 ML 200 MG IV (07:52)
[2025-05-19] MEDS: TRANEXAMIC ACID/SOD. CHL. 1,000 MG/100 ML BAG 600 MG IVPB (07:56)
--- NOTE | 2025-05-19 08:08 | W.ANESNERVE ---
Nerve Block Single Injection Procedure Date and Time Date Performed: 05/19/25 Procedure Start: 07:21 Location Where Procedure Performed Procedure Location: Day Surgery Unit Reason Performed: Postoperative Analgesia Requesting Provider: Christiano Rangel Timeout Performed Timeout Performed: Yes Monitoring Used ECG, Blood Pressure, SpO2 and ETCO2 Sterility Sterility: Hand Hygiene, Surgical Cap, Surgical Mask, Sterile Gloves and Chlorhexidine Sedation Given During Procedure Sedation Given (Indicate Dose Given): Versed IV Dose:: 3 mg Patient Mental Status Patient Mental Status: Sedate with meaningful communication Nerve Block 1st Nerve Block: Laterality: Right Block Type: Interscalene Ultrasound Image Saved?: Yes Needle / Catheter Used: 100mm SonoPlex II Local Anesthetic Bolus (Indicate Dose Given): Lidocaine used for local infiltration of skin, Injected in 3-5ml increments after negative blood aspiration, Bupivacaine 0.5% Dose:: 10 mL and Exparel Dose:: 10 mL Additives (Indicate Dose Given): None Ultrasound: Sterile probe cover and gel used Nerve Stimulator: Supplement to Ultrasound use and No twitch or parasthesia noted < 0.5 mA (< 0.8) Paresthesia: None Procedure Tolerated: No Complications Procedure Outcome: Successful Performed By: Rashawn Odonenll
[2025-05-19] MEDS: Bupivacaine 0.25% Pres-Free W/EPI 30 ML VIAL (08:15)
[2025-05-19] MEDS: Vancomycin 1,000 MG VIAL 1000 MG (08:16)
--- NOTE | 2025-05-19 11:00 | DI.RAD_ITS ---
Exam(s) XR SHOULDER RT COMPLETE 2+V EXAM: XR SHOULDER RT COMPLETE 2+V CLINICAL HISTORY: Shoulder Arthritis. TECHNIQUE: 2D digital imaging was performed. COMPARISON: CR XR SHOULDER RT COMPLETE 2+V from 03/17/2023 FINDINGS: Two postop views There is satisfactory position alignment of the components of the newly placed reverse prosthesis. No fracture or loosening evident. IMPRESSION: Satisfactory postop appearance of the right shoulder reverse prosthesis DATA REPOSITORY: RADIATION DOSE DELIVERED:
--- NOTE | 2025-05-19 12:16 | W.ANESPOSTOP ---
Postoperative Evaluation Date, Time and Location Date Performed: 05/19/25 Time Performed: 12:16 Patient Location: Day Surgery Unit Vital Signs Most Recent Imported Vital Signs: Most Recent Vital Signs Temp Pulse Resp BP Pulse Ox 36.2 C L 57 L 17 81/58 L 96 05/19/25 12:10 05/19/25 12:11 05/19/25 12:11 05/19/25 12:11 05/19/25 12:11 Pain Score Most Recent Pain Score: Most Recent Pain Score Pain Level 0 05/19/25 07:17 Assessment Mental Status: Arousable with meaningful communication Airway and Respiratory Function: Patent airway with normal (patient baseline) respiratory exam Cardiovascular Function: Hemodynamically Stable Hydration Status: Adequately Hydrated Nausea & Vomiting: No Nausea or Vomiting Pain: Pt. Denies Any Pain Peripheral Nerve Block: Patient did not receive a nerve block
[2025-05-19] MEDS: Lactobacillus Acidophilus CAP 1 CAP PO (14:32)
== END 2025-05-19 16:07 | disposition home or self-care (01) ==
PROVIDERS: PCP Nurse Practitioner Family; Visit Provider Student in an Organized Health Care Education/Training Program
PROC: (CPT 23472; principal; 2025-05-19 07:30)
DX: M19.011 Primary osteoarthritis, right shoulder (principal); M75.101 Unspecified rotator cuff tear or rupture of right shoulder, not specified as traumatic; Z96.9 Presence of functional implant, unspecified; G89.18 Other acute postprocedural pain
CPT/HCPCS: 20680; 23472; 23430; C1715; 64415; 73030; J0131; J0665; J0666; J0690; J1100; J1885; J2250; J2371; J2405; J2704; J3373

== ENCOUNTER 2025-05-23 00:49 | Emergency (ER) | payer MEDICARE, OTHER, SELFPAY ==
--- NOTE | 2025-05-23 00:45 | RT.EKG_ITS ---
APPROVED REPORT Exam: Resting ECG Reason for Exam: sob/ shoulder pain Patient Location: E HR:57 bpm ECG Measurements Heart Rate 57 AXIS RI 230 P 42 QRSd 88 QRS -3 QT 418 T 42 QTc 407 Conclusion Sinus bradycardia...rate< 60 Prolonged RI interval...RI >210, V-rate 50- 90 I have reviewed and interpreted ECG and agree with software generated interpretation.
[2025-05-23 00:55] VITALS: BP 128/93; PULSE 60; RESP 16; TEMP 36.2; O2SAT 98
--- NOTE | 2025-05-23 01:00 | DI.RAD_ITS ---
Exam(s) XR PORTABLE CHEST AP EXAM: XR PORTABLE CHEST AP CLINICAL HISTORY: post operative SOB, r/o pneumonia TECHNIQUE: 2D digital imaging was performed. COMPARISON: CR CHEST 2 VIEWS PA,LAT from 11/25/2009 CR RIGHT HAND COMPLETE from 10/23/2011 CR XR SHOULDER RT COMPLETE 2+V from 03/17/[address] UPPER EXTREMITY RT WO from 05/04/2025 CR XR SHOULDER RT COMPLETE 2+V from 05/19/2025 FINDINGS: LUNGS: The left lung is clear. There is no elevated right diaphragm. There are linear densities at the medial right lung base which likely represent atelectasis. There is minimal blunting at the right costophrenic angle which could represent a tiny effusion. HEART: Normal size. AORTA: Normal diameter. BONES: Recently placed right shoulder prosthesis. Some surrounding residual postsurgical air. IMPRESSION: Elevated right diaphragm. Right medial basilar atelectasis. Tiny right pleural effusion. DATA REPOSITORY: RADIATION DOSE DELIVERED:
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
[2025-05-23 01:33] LABS: Abs Immature Grans 0.02 10^3/uL (0.0-0.06); HCT 38.8 % (40.0-50.0); HGB 12.7 g/dL (13.5-17.5); Immature Grans % 0.4 %; MCH 28.9 pg (27.0-33.0); MCHC 32.7 % (32.0-36.0); MCV 88 fL (80-95); MPV 9.1 fL (8.0-11.0); Platelet Count 252 10^3/uL (130-400); RBC 4.40 10^6/uL (4.36-5.78); RDW 12.3 % (11.8-14.1); RDW-SD 40.0 fL; WBC 5.63 10^3/uL (4.4-10.8)
[2025-05-23 01:46] LABS: INR 0.9 (0.9-1.1); PTT Activated 26.1 sec (20.6-30.2); Prothrombin Time 9.2 sec (9.1-11.1)
[2025-05-23 01:55] LABS: ALT 25 U/L (16-63); AST 25 U/L (15-37); Albumin 3.6 g/dL (3.4-5.0); Alkaline Phosphatase 84 U/L (46-116); Anion Gap 7.5 mmol/L (3-11); BUN 19 mg/dL (7-18); Bilirubin, Total 0.4 mg/dL (0.2-1.0); CO2 29.5 mmol/L (21.0-32.0); Calcium 8.8 mg/dL (8.5-10.1); Chloride 102 mmol/L (98-107); Estimated GFR 106.48 (mL/min/1.73m2); Glucose 81 mg/dL (74-106); Potassium 3.9 mmol/L (3.5-5.1); Sodium 139 mmol/L (136-145); Total Protein 7.4 g/dL (6.4-8.2); Troponin I 4 ng/L (<or=76)
[2025-05-23 02:10] LABS: D-Dimer 1373 ng/mlFEU (<500)
--- NOTE | 2025-05-23 02:30 | DI.CT_ITS ---
Exam(s) CT CHEST PE CTA EXAM: CT CHEST PE CTA CLINICAL HISTORY: 5 days post op R shoulder, SOB, r/o PE/pneumonia. TECHNIQUE: Imaging Protocol: Axial CT angiography was performed with multi- slice acquisition and multi-planar reconstructions as well as axial, coronal and sagittal MIP reconstructions. Computer aided detection (CAD) was utilized. CONTRAST MATERIAL: Intravenous: Omnipaque 350 Contrast volume:100 ml COMPARISON: CR CHEST 2 VIEWS PA,LAT from 11/25/2009 FINDINGS: Pulmonary Arteries: No evidence of filling defect to suggest pulmonary emboli. Mediastinum and Ammy: No dominant adenopathy or fluid collection. Pulmonary parenchyma: Atelectasis is noted at the right lower lobe. No evidence of effusion. Atelectasis also noted in the right middle lobe above the diaphragm.. Pleura: No effusion or pneumothorax. Heart: The heart is not dilated. No coronary artery calcifications are seen. Aorta: Thoracic aorta non-dilated. No dissection. Upper abdomen: No acute findings. Status post cholecystectomy. Suture material at stomach related to gastric bypass. Large amount of intra-abdominal fat contributing to elevation of the right diaphragm. Bones: Right shoulder prosthesis. Tubes, Catheters, and Lines: None Soft tissues: postsurgical air in the anterior right shoulder. Some soft tissue swelling. IMPRESSION: No evidence of pulmonary embolism. Atelectasis involving the right middle and lower lobes. The preliminary [facility] report was reviewed. RADIATION DOSE DELIVERED: 476.06mGy.cm Total DLP DATA REPOSITORY: All CT scans at this facility are submitted to the National Radiology Data Registry (NRDR) Dose Index Registry (DIR) with the [employer] (ACR). RADIATION OPTIMIZATION: All CT scans at this facility use at least one of these dose optimization techniques: automated exposure control; mA and/or kV adjustment per patient size (includes targeted exams where dose is matched to clinical indication); or iterative reconstruction.
--- NOTE | 2025-05-23 02:34 | DI.[facility]_ITS ---
PROCEDURE INFORMATION: Exam: XR Chest Exam date and time: 05/23/2025 1:39 AM Age: 50 years old Clinical indication: Shortness of breath; Prior surgery; Surgery date: 3-7 days post-operative; Surgery type: R shoulder; Post operative SOB, R/O pneumonia TECHNIQUE: Imaging protocol: Radiologic exam of the chest. Views: 1 view. COMPARISON: CR XR SHOULDER RT COMPLETE 2+V 05/19/2025 12:05 PM FINDINGS: Lungs: No focal airspace opacities. Pleural spaces: No pneumothorax. Mild blunting at the right costophrenic sulcus may represent small effusion. Heart/Mediastinum: The heart is normal size. Diaphragm: There is elevation of the right hemidiaphragm. Bones/joints: Unremarkable. IMPRESSION: Elevation of the right hemidiaphragm. Questionable right pleural effusion. No airspace consolidation where visualized. Dictated and Authenticated by: Tana Haque MD. Orderin Mami Self MD
[2025-05-23] MEDS: Omnipaque 350 MG/ML 100 ML BTL IJ (02:45)
[2025-05-23] MEDS: Normal Saline - Diluent 50 ML VIAL IJ (02:48)
[2025-05-23] MEDS: Normal Saline Flush 10 ML SYR IVP (02:48)
[2025-05-23 03:13] LABS: Troponin I 4 ng/L (<or=76)
[2025-05-23] MEDS: Acetaminophen 500 MG TAB (03:14)
--- NOTE | 2025-05-23 03:24 | DI.[facility]_ITS ---
PROCEDURE INFORMATION: Exam: CTA Chest With Contrast Exam date and time: 05/23/2025 2:47 AM Age: 50 years old Clinical indication: Abnormal findings; Abnormal diagnostic tests; Elevated d-dimer; Shortness of breath; Prior surgery; Surgery date: 3-7 days post-operative; 5 days post op R shoulder, SOB, R/O pe/pneumonia TECHNIQUE: Imaging protocol: Computed tomographic angiography of the chest with contrast. Exam focused on the arteries. 3D rendering (Not supervised by radiologist): MIP and/or 3D reconstructed images were created by the technologist. Radiation optimization: All CT scans at this facility use at least one of these dose optimization techniques: automated exposure control; mA and/or kV adjustment per patient size (includes targeted exams where dose is matched to clinical indication); or iterative reconstruction. Contrast material: OMNIPAQUE 350; Contrast volume: 100 ml; Contrast route: INTRAVENOUS (IV); COMPARISON: CR XR PORTABLE CHEST AP 05/23/2025 1:39 AM FINDINGS: Pulmonary arteries: No acute pulmonary embolus. Aorta: Unremarkable. No aortic aneurysm. No aortic dissection. Lungs: The lungs are clear. Focal atelectatic lung is present within the right lower lobe. Atelectatic lung is also present at the right lung base. No other pulmonary consolidation or airspace opacities. Pleural spaces: No pleural effusion or pneumothorax. Heart: Unremarkable. No cardiomegaly. No pericardial effusion. Lymph nodes: Unremarkable. No enlarged lymph nodes. Diaphragm: There is elevation of the right hemidiaphragm. Bones/joints: Unremarkable. No acute fracture. Soft tissues: Unremarkable. IMPRESSION: 1. No pulmonary embolus. 2. Focal right lower lobe atelectatic lung. Differential considerations include atelectasis in the setting of an elevated right hemidiaphragm versus aspiration/infection. No central obstructing lesion is visualized. Short interval follow-up is recommended to ensure either resolution or stability of this finding and exclude underlying pulmonary pathology. Dictated and Authenticated by: Tana Haque MD. Orderin Mami Self MD
[2025-05-23] MEDS: AMPICILLIN/SULBACTAM 3 GM in Normal Saline 100 ML IVPB (03:53)
[2025-05-23 04:47] VITALS: BP 112/79; PULSE 62; RESP 16; O2SAT 97
== END 2025-05-23 04:48 | disposition home or self-care (01) ==
PROVIDERS: Emergency Provider Student in an Organized Health Care Education/Training Program; PCP Nurse Practitioner Family
DX: J69.0 Pneumonitis due to inhalation of food and vomit (principal); R06.02 Shortness of breath; Z98.890 Other specified postprocedural states
CPT/HCPCS: 99284; 99285; 36415; 71275; 80053; 93005; 96365; 71045; 84484; 85025; 85379; 85610; 85730; 93010; J0295; J3490

== ENCOUNTER 2025-05-31 13:30 | Outpatient (CLI) | payer MEDICARE, OTHER, SELFPAY ==
--- NOTE | 2025-05-31 09:30 | DI.RAD_ITS ---
Exam(s) XR SHOULDER RT COMPLETE 2+V EXAM: XR SHOULDER RT COMPLETE 2+V INDICATION: F/U RIGHT RTSA. COMPARISON: CR XR SHOULDER RT COMPLETE 2+V from 05/19/2025 TECHNIQUE: 2D digital imaging was performed. Two views. FINDINGS: Stable alignment of reverse shoulder prosthesis. Some residual postsurgical air remains present. DATA REPOSITORY: RADIATION DOSE DELIVERED:
== END 2025-05-31 13:31 | disposition home or self-care (01) ==
LOC: DIORS 13:31
PROVIDERS: PCP Nurse Practitioner Family; Referring Provider Nurse Practitioner Family; Visit Provider Physician Assistant
DX: M19.011 Primary osteoarthritis, right shoulder (principal); M75.101 Unspecified rotator cuff tear or rupture of right shoulder, not specified as traumatic
CPT/HCPCS: 99024; 73030

== ENCOUNTER 2025-06-01 00:03 | Emergency (ER) | payer MEDICARE, OTHER, SELFPAY ==
[2025-06-01 00:07] VITALS: BP 143/96; PULSE 65; RESP 16; TEMP 37; O2SAT 97
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
== END 2025-06-01 00:27 | disposition home or self-care (01) ==
PROVIDERS: Emergency Provider Emergency Medicine; PCP Nurse Practitioner Family
DX: L76.32 Postprocedural hematoma of skin and subcutaneous tissue following other procedure (principal); Z96.611 Presence of right artificial shoulder joint; Z98.84 Bariatric surgery status
CPT/HCPCS: 99283

== ENCOUNTER → 2025-07-19 09:36 | Outpatient (BNVA) | payer MEDICARE, OTHER, SELFPAY | PROVIDERS: PCP Nurse Practitioner Family; Referring Provider Nurse Practitioner Family; Visit Provider Student in an Organized Health Care Education/Training Program | DX: Z47.1 Aftercare following joint replacement surgery (principal); Z96.611 Presence of right artificial shoulder joint | CPT/HCPCS: 99024 ==

== ENCOUNTER 2025-09-13 14:36 | Outpatient (CLI) | payer MEDICARE, OTHER, SELFPAY ==
--- NOTE | 2025-09-13 11:15 | DI.RAD_ITS ---
Exam(s) XR SHOULDER RT COMPLETE 2+V EXAM: XR SHOULDER RT COMPLETE 2+V CLINICAL HISTORY: F/U RIGHT RTSA. TECHNIQUE: 2D digital imaging was performed. Five views. COMPARISON: CR XR SHOULDER RT COMPLETE 2+V from 05/31/2025 FINDINGS: BONES: No acute fracture is present. No bony destructive lesion is seen. JOINTS: No dislocation present. Stable alignment of shoulder prosthesis. SOFT TISSUE: Normal. IMPRESSION: Stable appearance shoulder prosthesis. DATA REPOSITORY: RADIATION DOSE DELIVERED:
== END 2025-09-13 14:37 | disposition home or self-care (01) ==
LOC: DIORS 14:36
PROVIDERS: PCP Nurse Practitioner Family; Referring Provider Nurse Practitioner Family; Visit Provider Student in an Organized Health Care Education/Training Program
DX: Z47.1 Aftercare following joint replacement surgery (principal); Z96.611 Presence of right artificial shoulder joint; M75.101 Unspecified rotator cuff tear or rupture of right shoulder, not specified as traumatic; M19.011 Primary osteoarthritis, right shoulder
CPT/HCPCS: 99213; 73030